=== PATIENT | female | born 1960 | race Caucasian/White ===

== ENCOUNTER 2019-11-18 12:18 | Inpatient (IN) | payer MEDICAID ==
[~2019-11-18] VITALS: Ht 165.1 cm; Wt 75.4 kg
[2019-11-18] VITALS (14 sets, daily range): BP systolic 68–90; BP diastolic 32–58
[~2019-11-18 12:18] MED LIST: CEFD300C37 PO; FERR324T18 PO; OMEP-110 PO; PRED20TA PO
[2019-11-18] MEDS ORDERED: SODIUM CHLORIDE FLUSH 10ML SYR IVF ONE (12:30)
[2019-11-18] MEDS ORDERED: SODIUM CHLORIDE 0.9% 1,000ML IVBOLUS ONE ×2 (12:30→15:00)
[2019-11-18] MEDS ORDERED: PLEASE ENTER WEIGHT MC SCH (13:00)
[2019-11-18 13:02] LABS: ALANINE AMINOTRANSFERASE 32 U/L (12-78); ALBUMIN 1.4 g/dL (3.4-5.0); CHLORIDE 93 mmol/L (98-107); CREATININE 1.34 mg/dL (0.55-1.02)
[2019-11-18 13:07] LABS: ALKALINE PHOSPHATASE 385 U/L (45-117); ANION GAP 10 mmol/L (5-15); BILIRUBIN,TOTAL 11.9 mg/dL (0.2-1.0); TOTAL PROTEIN 4.7 g/dL (6.4-8.2)
[2019-11-18 13:11] LABS: MEAN CORPUSCULAR HEMOGLOBIN 33.3 pg (27.0-34.8); MEAN CORPUSCULAR HGB CONC 33.3 g/dL (32.4-35.8); MEAN CORPUSCULAR VOLUME 100.1 fL (80-100); MEAN PLATELET VOLUME 6.9 fL (7.4-10.4); PLATELET COUNT 301 x10^3/uL (130-400); RED BLOOD COUNT 1.55 x10^6/uL (3.82-5.3)
--- NOTE | 2019-11-18 13:15 | NUR ---
IV ATTEMPTED, UNSUCCESSFUL, WILL TRY EJ OR US.
[2019-11-18 13:26] LABS: MD YES
--- NOTE | 2019-11-18 13:31 | NUR ---
PT LAYING IN BED, EJ IV ATEMPTED TO BE STARTED UNSUCCESSFUL, PT TOLERATED WELL
[2019-11-18 13:41] LABS: BAND#(MANUAL) 0.11 x10^3/uL; BANDS%(MANUAL) 1 % (0-7); LYMPH#(MANUAL) 0.84 x10^3/uL (1-3.4); LYMPHS% (MANUAL) 8 % (22-44); MONOS#(MANUAL) 0.53 x10^3/uL (0.3-2.7); MONOS% (MANUAL) 5 % (2-9); SEG#(MANUAL) 9.03 x10^3/uL (1.8-6.8); SEGS% (MANUAL) 86 % (42-75)
--- NOTE | 2019-11-18 13:41 | NUR ---
ERP TO BEDSIDE, DOING RECTAL EXAM.
[2019-11-18 13:42] LABS: ANISOCYTOSIS 1+; POLYCHROMASIA 1+
[2019-11-18 13:43] LABS: HYPOCHROMIA 1+
[2019-11-18 13:44] LABS: <PLATELET ESTIMATE> ADEQUATE; STOMATOCYTES 1+
[2019-11-18 13:45] LABS: <PLT MORPHOLOGY> NORMAL PLT MORPH
--- NOTE | 2019-11-18 14:08 | NUR ---
US IV START SUCCESSFUL, PT MEDICATED TO OCT. LAB AT BEDSIDE.
[2019-11-18 14:17] LABS: INTERNATIONAL NORMALIZED RATIO 1.24 (0.93-1.1); PROTHROMBIN TIME 13.2 Seconds (9.6-11.5)
[2019-11-18] MEDS ORDERED: SODIUM CHLORIDE 0.9% 1,000 ML IV ONE (14:30)
[2019-11-18] MEDS ORDERED: CEFTRIAXONE PMX 1GM/50ML 50 ML IV ONE (14:30)
[2019-11-18] MEDS ORDERED: PANTOPRAZOLE 80 MG in SODIUM CHLORIDE 0.9% 100 ML IV SCH (14:30)
--- NOTE | 2019-11-18 14:31 | NUR ---
BREAK RN: ORDERED MEDICATION FROM PHARMACY
--- NOTE | 2019-11-18 14:41 | NUR ---
BREAK RN: PT UP TO BSC, UNSTEADY GAIT. BP 81/34, NOTIFIED
--- NOTE | 2019-11-18 14:50 | NUR ---
BREAK RN: IV INFILTRATED. PT HAS POSITIVE BLOOD IN STOOL, NOTIFIED MD OF ABOVE
[2019-11-18] MEDS ORDERED: OCTREOTIDE 100MCG/ML, 1ML (0.1MG/ML) ONE (14:59)
--- NOTE | 2019-11-18 15:16 | NUR ---
ERP AT BEDSIDE, UPDATED PT ON POC, INCLUDING TO START CENTRAL LINE, BECAUSE MULTIPLE UNSUCCESSFUL IV STARTS. PT LAYING IN BED, AWAKE, AND CALM
[2019-11-18] MEDS: SODIUM CHLORIDE 0.9% 1,000 ML IV SCH (15:22)
--- NOTE | 2019-11-18 15:29 | NUR ---
ERP TO BEDSIDE TO INSERT CENTRAL LINE, CONSENT RECEIVED
[2019-11-18] MEDS ORDERED: BISACODYL 10 MG SUPP PR PRN (15:30)
[2019-11-18] MEDS ORDERED: ONDANSETRON 2MG/ML, 2ML IVPush PRN (15:30)
[2019-11-18] MEDS ORDERED: POLYETHYLENE GLYCOL 17 GM PACKET PO PRN (15:30)
[2019-11-18] MEDS ORDERED: OXYcodone IR 5MG TABLET PO PRN (15:30)
[2019-11-18] MEDS: OCTREOTIDE 100MCG/ML, 1ML (0.1MG/ML) IV ONE ×2 (15:58→16:14)
[2019-11-18] MEDS: PANTOPRAZOLE 80 MG in SODIUM CHLORIDE 0.9% 50 ML IVPB ONE ×2 (16:00→16:22)
[2019-11-18] MEDS ORDERED: CEFTRIAXONE PMX 1GM/50ML 50 ML ONE (16:04)
[2019-11-18] MEDS: OCTREOTIDE 500 MCG in SODIUM CHLORIDE 0.9% 99 ML IV PRN ×3 (16:08→16:22)
[2019-11-18] MEDS: CEFTRIAXONE PMX 1GM/50ML 50 ML IV SCH (16:25)
[2019-11-18] MEDS: PANTOPRAZOLE 80 MG in SODIUM CHLORIDE 0.9% 100 ML IV SCH (16:38)
--- NOTE | 2019-11-18 17:09 | NUR ---
PT TOLERATED CENTRAL LINE INSERTION WELL, MEDICATED TO MAR. PT STATES SHE IS TIRED. BLOOD STARTED. NURSE AT BEDSIDE.
--- NOTE | 2019-11-18 17:31 | NUR ---
Lizet alonso in [facility] - 11/18/19 at 1733 by MURTAZA REPORT GIVEN TO ANURAG MORENO.
--- NOTE | 2019-11-18 17:34 | NUR ---
REPORT GIVEN TO ANURAG MORENO.
[2019-11-18] MEDS ORDERED: NOREPINEPHRINE 8 MG in SODIUM CHLORIDE 0.9% 242 ML IV PRN (20:00)
[2019-11-19] MEDS: SODIUM CHLORIDE 0.9% 1,000 ML IV SCH ×3 (00:13→13:03)
[2019-11-19] MEDS: PANTOPRAZOLE 80 MG in SODIUM CHLORIDE 0.9% 100 ML IV SCH ×2 (00:14→13:27)
[2019-11-19 04:30] VITALS: BP 89/52
[2019-11-19 04:48] LABS: MEAN CORPUSCULAR HGB CONC 34.1 g/dL (32.4-35.8); MEAN CORPUSCULAR VOLUME 93.8 fL (80-100); MEAN PLATELET VOLUME 6.7 fL (7.4-10.4); PLATELET COUNT 241 x10^3/uL (130-400); RED CELL DISTRIBUTION WIDTH 17.2 % (9.6-15.2)
[2019-11-19 04:53] LABS: INTERNATIONAL NORMALIZED RATIO 1.21 (0.93-1.1); PROTHROMBIN TIME 12.9 Seconds (9.6-11.5)
[2019-11-19 04:57] LABS: ALBUMIN 1.2 g/dL (3.4-5.0); ANION GAP 6 mmol/L (5-15); CALCIUM 7.3 mg/dL (8.5-10.1); CHLORIDE 99 mmol/L (98-107)
[2019-11-19 05:01] LABS: ALANINE AMINOTRANSFERASE 31 U/L (12-78); ALKALINE PHOSPHATASE 363 U/L (45-117); CREATININE 1.21 mg/dL (0.55-1.02); TOTAL PROTEIN 4.1 g/dL (6.4-8.2)
[2019-11-19 05:05] LABS: BILIRUBIN,TOTAL 15.9 mg/dL (0.2-1.0)
[2019-11-19] MEDS: OCTREOTIDE 500 MCG in SODIUM CHLORIDE 0.9% 99 ML IV SCH ×2 (05:43→07:17)
[2019-11-19 05:54] LABS: MD YES
[2019-11-19 05:56] LABS: ANISOCYTOSIS 1+; HYPOCHROMIA 1+; LYMPH#(MANUAL) 0.91 x10^3/uL (1-3.4); LYMPHS% (MANUAL) 9 % (22-44); MONOS#(MANUAL) 0.61 x10^3/uL (0.3-2.7); MONOS% (MANUAL) 6 % (2-9); POLYCHROMASIA 1+; SEG#(MANUAL) 8.59 x10^3/uL (1.8-6.8); SEGS% (MANUAL) 85 % (42-75); TARGET CELLS 1+
[2019-11-19 05:57] LABS: <PLATELET ESTIMATE> ADEQUATE; <PLT MORPHOLOGY> NORMAL PLT MORPH
[2019-11-19] MEDS ORDERED: DEXAMETHASONE 4 MG/ML, 1ML ONE ×2 (07:28)
[2019-11-19] MEDS ORDERED: ONDANSETRON 2MG/ML, 2ML ONE (07:28)
[2019-11-19] MEDS ORDERED: PROPOFOL 10 MG/ML, 20ML ONE (07:28)
[2019-11-19] MEDS ORDERED: SUCCINYLCHOLINE 20 MG/ML, 10ML ONE (07:29)
[2019-11-19] MEDS ORDERED: PHENYLEPHRINE 10 MG/ML ONE (07:43)
[2019-11-19] MEDS ORDERED: HALOPERIDOL 5 MG/ML IV PRN (08:00)
[2019-11-19] MEDS ORDERED: PROMETHAZINE 25 MG/ML, 1ML IV PRN (08:00)
[2019-11-19] MEDS ORDERED: EPINEPHRINE SYRINGE 0.1 MG/ML, 10ML ONE (09:10)
[2019-11-19] MEDS: NOREPINEPHRINE 8 MG in SODIUM CHLORIDE 0.9% 242 ML IV PRN (10:03)
[2019-11-19] MEDS: SENNA/DOCUSATE TABLET PO SCH (10:11)
[2019-11-19] MEDS: CEFTRIAXONE PMX 1GM/50ML 50 ML IV SCH (15:05)
[2019-11-20] MEDS: PANTOPRAZOLE 80 MG in SODIUM CHLORIDE 0.9% 100 ML IV SCH (01:21)
[2019-11-20 05:02] LABS: ALBUMIN 1.2 g/dL (3.4-5.0); ANION GAP 7 mmol/L (5-15); CHLORIDE 99 mmol/L (98-107)
[2019-11-20 05:07] LABS: ALANINE AMINOTRANSFERASE 30 U/L (12-78); ALKALINE PHOSPHATASE 333 U/L (45-117); BILIRUBIN,TOTAL 12.5 mg/dL (0.2-1.0); CREATININE 1.42 mg/dL (0.55-1.02)
[2019-11-20] MEDS: NOREPINEPHRINE 8 MG in SODIUM CHLORIDE 0.9% 242 ML IV PRN (06:08)
[2019-11-20] MEDS: SENNA/DOCUSATE TABLET PO SCH (08:32)
[2019-11-20] MEDS: PANTOPRAZOLE 40 MG IV IVPush SCH ×2 (08:32→21:00)
[2019-11-20] MEDS: MIDODRINE 5 MG TABLET PO SCH ×3 (08:32→21:00)
[2019-11-20] MEDS: CEFTRIAXONE PMX 1GM/50ML 50 ML IV SCH (16:26)
[2019-11-21] MEDS: SENNA/DOCUSATE TABLET PO SCH (09:05)
[2019-11-21] MEDS: PANTOPRAZOLE 40 MG IV IVPush SCH ×2 (09:05→20:23)
[2019-11-21] MEDS: MIDODRINE 5 MG TABLET PO SCH ×3 (09:05→20:23)
[2019-11-21] MEDS: NOREPINEPHRINE 8 MG in SODIUM CHLORIDE 0.9% 242 ML IV PRN (09:45)
[2019-11-21] MEDS: ALBUMIN HUMAN 25% 100 ML IV SCH ×2 (11:11→19:38)
[2019-11-21 13:09] LABS: ANION GAP 6 mmol/L (5-15); CALCIUM 7.6 mg/dL (8.5-10.1); CHLORIDE 102 mmol/L (98-107); MEAN CORPUSCULAR HEMOGLOBIN 31.8 pg (27.0-34.8); MEAN CORPUSCULAR HGB CONC 33.1 g/dL (32.4-35.8); MEAN CORPUSCULAR VOLUME 96.2 fL (80-100); MEAN PLATELET VOLUME 6.2 fL (7.4-10.4); PLATELET COUNT 338 x10^3/uL (130-400); RED BLOOD COUNT 2.56 x10^6/uL (3.82-5.3); RED CELL DISTRIBUTION WIDTH 18.1 % (9.6-15.2)
[2019-11-21 13:12] LABS: ALANINE AMINOTRANSFERASE 30 U/L (12-78); ALKALINE PHOSPHATASE 305 U/L (45-117); BILIRUBIN,TOTAL 11.7 mg/dL (0.2-1.0); CREATININE 1.13 mg/dL (0.55-1.02); TOTAL PROTEIN 4.7 g/dL (6.4-8.2)
[2019-11-21 13:23] LABS: MD YES
[2019-11-21 13:25] LABS: ANISOCYTOSIS 1+; BAND#(MANUAL) 0.25 x10^3/uL; BANDS%(MANUAL) 2 % (0-7); EOS#(MANUAL) 0.13 x10^3/uL (0.0-0.4); EOS% (MANUAL) 1 % (1-7); LYMPH#(MANUAL) 1.26 x10^3/uL (1-3.4); LYMPHS% (MANUAL) 10 % (22-44); MONOS% (MANUAL) 4 % (2-9); REACTIVE LYMPHS # (MANUAL) 0.13 x10^3/uL (0-0); REACTIVE LYMPHS % (MANUAL) 1 % (0-0); SEG#(MANUAL) 10.33 x10^3/uL (1.8-6.8); SEGS% (MANUAL) 82 % (42-75)
[2019-11-21 13:26] LABS: HYPOCHROMIA 1+; POLYCHROMASIA 1+; TARGET CELLS 1+
[2019-11-21 13:27] LABS: <PLATELET ESTIMATE> ADEQUATE; <PLT MORPHOLOGY> NORMAL PLT MORPH
[2019-11-21] MEDS: CEFTRIAXONE PMX 1GM/50ML 50 ML IV SCH (16:30)
[2019-11-22] VITALS (10 sets, daily range): BP systolic 82–95; BP diastolic 42–56
[2019-11-22] MEDS: ALBUMIN HUMAN 25% 100 ML IV SCH ×3 (04:25→19:41)
[2019-11-22 05:32] LABS: ANION GAP 7 mmol/L (5-15); CALCIUM 7.6 mg/dL (8.5-10.1); CHLORIDE 105 mmol/L (98-107); CREATININE 0.95 mg/dL (0.55-1.02)
[2019-11-22 06:27] LABS: MEAN CORPUSCULAR HEMOGLOBIN 31.6 pg (27.0-34.8); MEAN CORPUSCULAR HGB CONC 32.7 g/dL (32.4-35.8); MEAN CORPUSCULAR VOLUME 96.5 fL (80-100); MEAN PLATELET VOLUME 6.2 fL (7.4-10.4); PLATELET COUNT 221 x10^3/uL (130-400); RED BLOOD COUNT 2.05 x10^6/uL (3.82-5.3)
[2019-11-22 06:54] LABS: MD YES
[2019-11-22 06:59] LABS: <RBC MORPHOLOGY> NORMAL; BAND#(MANUAL) 0.07 x10^3/uL; BANDS%(MANUAL) 1 % (0-7); EOS#(MANUAL) 0.22 x10^3/uL (0.0-0.4); EOS% (MANUAL) 3 % (1-7); LYMPH#(MANUAL) 0.95 x10^3/uL (1-3.4); LYMPHS% (MANUAL) 13 % (22-44); MONOS#(MANUAL) 0.29 x10^3/uL (0.3-2.7); MONOS% (MANUAL) 4 % (2-9); POLYCHROMASIA 1+; SEG#(MANUAL) 5.77 x10^3/uL (1.8-6.8); SEGS% (MANUAL) 79 % (42-75)
[2019-11-22 07:00] LABS: ANISOCYTOSIS 1+; HYPOCHROMIA 1+
[2019-11-22 07:02] LABS: TARGET CELLS 1+
[2019-11-22 07:03] LABS: <PLATELET ESTIMATE> ADEQUATE; <PLT MORPHOLOGY> NORMAL PLT MORPH
[2019-11-22] MEDS: MIDODRINE 5 MG TABLET PO SCH ×3 (08:49→20:22)
[2019-11-22] MEDS: PANTOPRAZOLE 40 MG IV IVPush SCH ×2 (08:49→20:22)
[2019-11-22] MEDS: SENNA/DOCUSATE TABLET PO SCH (08:49)
[2019-11-22] MEDS: CIPROFLOXACIN OPHTH SOLN 0.3%, 5ML EACHEYE SCH ×3 (10:39→20:22)
[2019-11-22] MEDS: CEFTRIAXONE PMX 1GM/50ML 50 ML IV SCH (15:47)
[2019-11-23] MEDS: ALBUMIN HUMAN 25% 100 ML IV SCH ×3 (03:14→20:00)
[2019-11-23 06:06] LABS: BASOPHILS % (AUTO) 0 % (0-1); EOSINOPHILS # (AUTO) 0.08 x10^3/uL (0-0.4); EOSINOPHILS % (AUTO) 1 % (1-7); LYMPHOCYTES # (AUTO) 1.97 x10^3/uL (1-3.4); LYMPHOCYTES % (AUTO) 22 % (22-44); MD NO; MEAN CORPUSCULAR VOLUME 93.9 fL (80-100); MEAN PLATELET VOLUME 6.3 fL (7.4-10.4); MONOCYTES # (AUTO) 0.18 x10^3/uL (0.2-0.8); MONOCYTES % (AUTO) 2 % (2-9); NEUTROPHILS # (AUTO) 6.95 x10^3/uL (1.8-6.8); NEUTROPHILS % (AUTO) 76 % (42-75); PLATELET COUNT 181 x10^3/uL (130-400); RED BLOOD COUNT 2.76 x10^6/uL (3.82-5.3); RED CELL DISTRIBUTION WIDTH 18.7 % (9.6-15.2)
[2019-11-23] MEDS: MIDODRINE 5 MG TABLET PO SCH ×3 (09:39→20:01)
[2019-11-23] MEDS: PANTOPRAZOLE 40 MG IV IVPush SCH ×2 (09:39→19:56)
[2019-11-23] MEDS: HYDROCORTISONE 100 MG INJ. IVPush SCH ×3 (09:39→19:56)
[2019-11-23] MEDS: CIPROFLOXACIN OPHTH SOLN 0.3%, 5ML EACHEYE SCH ×3 (09:39→20:00)
[2019-11-23] MEDS: SENNA/DOCUSATE TABLET PO SCH (09:40)
[2019-11-23] MEDS: CEFTRIAXONE PMX 1GM/50ML 50 ML IV SCH (15:17)
[2019-11-23 17:14] VITALS: BP 92/51
[2019-11-23 19:43] VITALS: BP 105/65
[2019-11-24 00:59] VITALS: BP 107/63
[2019-11-24] MEDS: HYDROCORTISONE 100 MG INJ. IVPush SCH ×4 (01:08→19:59)
[2019-11-24] MEDS: ALBUMIN HUMAN 25% 100 ML IV SCH ×3 (03:50→19:59)
[2019-11-24 05:58] LABS: BASOPHILS % (AUTO) 0 % (0-1); EOSINOPHILS % (AUTO) 0 % (1-7); LYMPHOCYTES # (AUTO) 0.56 x10^3/uL (1-3.4); LYMPHOCYTES % (AUTO) 7 % (22-44); MD NO; MEAN CORPUSCULAR HEMOGLOBIN 31.5 pg (27.0-34.8); MEAN CORPUSCULAR HGB CONC 33.2 g/dL (32.4-35.8); MEAN CORPUSCULAR VOLUME 94.8 fL (80-100); MEAN PLATELET VOLUME 6.8 fL (7.4-10.4); MONOCYTES # (AUTO) 0.05 x10^3/uL (0.2-0.8); MONOCYTES % (AUTO) 1 % (2-9); NEUTROPHILS # (AUTO) 7.12 x10^3/uL (1.8-6.8); NEUTROPHILS % (AUTO) 92 % (42-75); PLATELET COUNT 177 x10^3/uL (130-400); RED BLOOD COUNT 2.92 x10^6/uL (3.82-5.3); RED CELL DISTRIBUTION WIDTH 19.5 % (9.6-15.2)
[2019-11-24 06:12] LABS: ALBUMIN 3.5 g/dL (3.4-5.0); ANION GAP 8 mmol/L (5-15); CALCIUM 8.3 mg/dL (8.5-10.1); CHLORIDE 106 mmol/L (98-107)
[2019-11-24 06:16] LABS: ALANINE AMINOTRANSFERASE 22 U/L (12-78); ALKALINE PHOSPHATASE 259 U/L (45-117); CREATININE 0.98 mg/dL (0.55-1.02); TOTAL PROTEIN 5.4 g/dL (6.4-8.2)
[2019-11-24 06:18] LABS: BILIRUBIN,TOTAL 15.1 mg/dL (0.2-1.0)
[2019-11-24 08:01] VITALS: BP 94/57
[2019-11-24] MEDS: PANTOPRAZOLE 40 MG IV IVPush SCH (08:19)
[2019-11-24] MEDS: MIDODRINE 5 MG TABLET PO SCH ×4 (08:22→20:00)
[2019-11-24] MEDS: SENNA/DOCUSATE TABLET PO SCH (08:23)
[2019-11-24] MEDS: CIPROFLOXACIN OPHTH SOLN 0.3%, 5ML EACHEYE SCH ×3 (08:30→20:00)
[2019-11-24] MEDS ORDERED: SPIRONOLACTONE 25 MG TABLET PO SCH (09:00)
[2019-11-24 09:47] VITALS: BP 116/74
[2019-11-24] MEDS: FUROSEMIDE 20 MG TABLET PO SCH (09:48)
[2019-11-24] MEDS ORDERED: LIDOCAINE 1%, 10ML ONE (10:35)
[2019-11-24 12:04] LABS: CELLS COUNTED 30
[2019-11-24 12:20] VITALS: BP 97/62
[2019-11-24 16:43] VITALS: BP 99/62
[2019-11-24] MEDS: CEFTRIAXONE PMX 1GM/50ML 50 ML IV SCH (16:44)
[2019-11-24] MEDS: PANTOPRAZOLE 40MG TABLET PO SCH (20:00)
[2019-11-24 20:24] VITALS: BP 93/56
[2019-11-25] MEDS: HYDROCORTISONE 100 MG INJ. IVPush SCH ×3 (00:16→21:16)
[2019-11-25 00:45] VITALS: BP 101/63
[2019-11-25] MEDS: ALBUMIN HUMAN 25% 100 ML IV SCH ×2 (03:41→09:03)
[2019-11-25 04:48] LABS: ALANINE AMINOTRANSFERASE 19 U/L (12-78); ALBUMIN 3.2 g/dL (3.4-5.0); ANION GAP 6 mmol/L (5-15); CALCIUM 8.2 mg/dL (8.5-10.1); CHLORIDE 107 mmol/L (98-107); CREATININE 1.04 mg/dL (0.55-1.02)
[2019-11-25 04:50] LABS: ALKALINE PHOSPHATASE 274 U/L (45-117); BILIRUBIN,TOTAL 11.8 mg/dL (0.2-1.0); TOTAL PROTEIN 4.8 g/dL (6.4-8.2)
[2019-11-25] MEDS: PANTOPRAZOLE 40MG TABLET PO SCH ×2 (05:28→15:37)
[2019-11-25 07:25] VITALS: BP 103/63
[2019-11-25] MEDS: MIDODRINE 5 MG TABLET PO SCH ×3 (09:02→21:16)
[2019-11-25] MEDS: SENNA/DOCUSATE TABLET PO SCH (09:02)
[2019-11-25] MEDS: CIPROFLOXACIN OPHTH SOLN 0.3%, 5ML EACHEYE SCH ×3 (09:03→21:16)
[2019-11-25] MEDS: FUROSEMIDE 20 MG TABLET PO SCH (10:53)
[2019-11-25] MEDS: SPIRONOLACTONE 25 MG TABLET PO SCH (10:54)
[2019-11-25 12:55] VITALS: BP 110/63
--- NOTE | 2019-11-25 13:30 | NUR ---
NURSING ACTIVITY SHEET 1. Bilateral LE strengthening exercises x 10 reps as tolerated per handout: ankle pumps, glut sets, quad sets, heel slides 2. Bed up in chair position 2-3x's a day for meals. Addendum: 11/25/19 at 1414 by [facility] PTA Amended: Links added.
[2019-11-25 19:26] VITALS: BP 90/57
[2019-11-26 01:27] VITALS: BP 101/67
[2019-11-26] MEDS: PANTOPRAZOLE 40MG TABLET PO SCH ×2 (06:06→16:04)
[2019-11-26 06:18] VITALS: BP 93/50
[2019-11-26 06:19] LABS: BASOPHILS # (AUTO) 0.05 x10^3/uL (0-0.1); BASOPHILS % (AUTO) 1 % (0-1); EOSINOPHILS % (AUTO) 0 % (1-7); LYMPHOCYTES # (AUTO) 1.01 x10^3/uL (1-3.4); LYMPHOCYTES % (AUTO) 9 % (22-44); MD NO; MEAN CORPUSCULAR HGB CONC 32.4 g/dL (32.4-35.8); MEAN CORPUSCULAR VOLUME 95.9 fL (80-100); MEAN PLATELET VOLUME 7.2 fL (7.4-10.4); MONOCYTES # (AUTO) 0.47 x10^3/uL (0.2-0.8); MONOCYTES % (AUTO) 4 % (2-9); NEUTROPHILS # (AUTO) 9.34 x10^3/uL (1.8-6.8); NEUTROPHILS % (AUTO) 86 % (42-75); PLATELET COUNT 214 x10^3/uL (130-400); RED BLOOD COUNT 2.99 x10^6/uL (3.82-5.3); RED CELL DISTRIBUTION WIDTH 20.7 % (9.6-15.2)
[2019-11-26 06:20] LABS: ANION GAP 6 mmol/L (5-15); CALCIUM 8.1 mg/dL (8.5-10.1); CHLORIDE 107 mmol/L (98-107); CREATININE 1.08 mg/dL (0.55-1.02)
[2019-11-26] MEDS: SPIRONOLACTONE 25 MG TABLET PO SCH (08:06)
[2019-11-26] MEDS: FUROSEMIDE 20 MG TABLET PO SCH (08:06)
[2019-11-26] MEDS: ALBUMIN HUMAN 25% 100 ML IV SCH (08:06)
[2019-11-26] MEDS: MIDODRINE 5 MG TABLET PO SCH ×3 (08:07→20:41)
[2019-11-26] MEDS: SENNA/DOCUSATE TABLET PO SCH (08:08)
[2019-11-26] MEDS: CIPROFLOXACIN OPHTH SOLN 0.3%, 5ML EACHEYE SCH ×3 (08:10→20:42)
[2019-11-26 11:15] VITALS: BP 96/60
[2019-11-26 20:01] VITALS: BP 102/64
[2019-11-27 01:32] VITALS: BP 101/63
[2019-11-27] MEDS: PANTOPRAZOLE 40MG TABLET PO SCH ×2 (05:46→17:30)
[2019-11-27 07:31] VITALS: BP 92/56
[2019-11-27] MEDS ORDERED: ALBUMIN HUMAN 25% 200 ML IV ONE (09:00)
[2019-11-27] MEDS: SENNA/DOCUSATE TABLET PO SCH (09:00)
[2019-11-27 09:40] VITALS: BP 103/68
[2019-11-27] MEDS: CIPROFLOXACIN OPHTH SOLN 0.3%, 5ML EACHEYE SCH (09:50)
[2019-11-27] MEDS: MIDODRINE 5 MG TABLET PO SCH ×2 (09:51→20:49)
[2019-11-27] MEDS: FUROSEMIDE 20 MG TABLET PO SCH (09:51)
[2019-11-27] MEDS: SPIRONOLACTONE 25 MG TABLET PO SCH (09:53)
[2019-11-27] MEDS ORDERED: LIDOCAINE 1%, 10ML ONE (11:03)
[2019-11-27] MEDS: ALBUMIN HUMAN 25% 100 ML IV SCH (13:00)
[2019-11-27 13:41] VITALS: BP 102/64
[2019-11-27 18:18] VITALS: BP 96/61
[2019-11-28 00:39] VITALS: BP 98/62
[2019-11-28 04:40] LABS: BASOPHILS # (AUTO) 0.03 x10^3/uL (0-0.1); BASOPHILS % (AUTO) 1 % (0-1); EOSINOPHILS # (AUTO) 0.12 x10^3/uL (0-0.4); EOSINOPHILS % (AUTO) 2 % (1-7); LYMPHOCYTES # (AUTO) 1.27 x10^3/uL (1-3.4); LYMPHOCYTES % (AUTO) 20 % (22-44); MD NO; MEAN CORPUSCULAR HEMOGLOBIN 31.3 pg (27.0-34.8); MEAN CORPUSCULAR VOLUME 94.8 fL (80-100); MEAN PLATELET VOLUME 7.3 fL (7.4-10.4); MONOCYTES # (AUTO) 0.26 x10^3/uL (0.2-0.8); MONOCYTES % (AUTO) 4 % (2-9); NEUTROPHILS # (AUTO) 4.81 x10^3/uL (1.8-6.8); NEUTROPHILS % (AUTO) 74 % (42-75); PLATELET COUNT 192 x10^3/uL (130-400); RED CELL DISTRIBUTION WIDTH 19.5 % (9.6-15.2)
[2019-11-28 04:47] LABS: ALANINE AMINOTRANSFERASE 37 U/L (12-78); ALBUMIN 2.7 g/dL (3.4-5.0); ANION GAP 5 mmol/L (5-15); CHLORIDE 109 mmol/L (98-107); CREATININE 0.91 mg/dL (0.55-1.02)
[2019-11-28 04:50] LABS: ALKALINE PHOSPHATASE 347 U/L (45-117); BILIRUBIN,TOTAL 12.5 mg/dL (0.2-1.0); TOTAL PROTEIN 4.1 g/dL (6.4-8.2)
[2019-11-28] MEDS: PANTOPRAZOLE 40MG TABLET PO SCH ×2 (05:27→15:59)
[2019-11-28 07:53] VITALS: BP 91/57
[2019-11-28] MEDS: SENNA/DOCUSATE TABLET PO SCH (08:05)
[2019-11-28] MEDS: MIDODRINE 5 MG TABLET PO SCH ×2 (08:06→21:10)
[2019-11-28] MEDS: FUROSEMIDE 20 MG TABLET PO SCH (08:06)
[2019-11-28] MEDS: SPIRONOLACTONE 25 MG TABLET PO SCH (08:06)
[2019-11-28] MEDS: ALBUMIN HUMAN 25% 100 ML IV SCH (08:07)
[2019-11-28] MEDS ORDERED: TRIAMCINOLONE CRM 0.1%, 454GMS TP SCH (11:30)
[2019-11-28 12:15] VITALS: BP 100/65
[2019-11-28] MEDS: CARBAMIDE PEROXIDE EAR DROPS 6.5%, 15ML LEFT EAR SCH (12:26)
[2019-11-28 18:21] VITALS: BP 96/61
[2019-11-28] MEDS: TRIAMCINOLONE CRM 0.1%, 15GM TP SCH (21:10)
[2019-11-29 00:22] VITALS: BP 98/58
[2019-11-29] MEDS: PANTOPRAZOLE 40MG TABLET PO SCH ×2 (06:14→16:20)
[2019-11-29 07:53] VITALS: BP 97/58
[2019-11-29] MEDS: ALBUMIN HUMAN 25% 100 ML IV SCH (08:07)
[2019-11-29] MEDS: CARBAMIDE PEROXIDE EAR DROPS 6.5%, 15ML LEFT EAR SCH (08:08)
[2019-11-29] MEDS: TRIAMCINOLONE CRM 0.1%, 15GM TP SCH ×2 (08:08→20:25)
[2019-11-29] MEDS: MIDODRINE 5 MG TABLET PO SCH ×2 (08:09→20:25)
[2019-11-29] MEDS: FUROSEMIDE 20 MG TABLET PO SCH (08:09)
[2019-11-29] MEDS: SENNA/DOCUSATE TABLET PO SCH (08:10)
[2019-11-29] MEDS: SPIRONOLACTONE 25 MG TABLET PO SCH (08:10)
[2019-11-29 12:10] VITALS: BP 100/65
[2019-11-29 19:54] VITALS: BP 107/68
[2019-11-30 00:41] VITALS: BP 102/61
[2019-11-30] MEDS: PANTOPRAZOLE 40MG TABLET PO SCH ×2 (05:35→16:12)
[2019-11-30 06:58] VITALS: BP 99/58
[2019-11-30] MEDS: ALBUMIN HUMAN 25% 100 ML IV SCH (09:00)
[2019-11-30] MEDS: MIDODRINE 5 MG TABLET PO SCH ×2 (09:04→21:06)
[2019-11-30] MEDS: SENNA/DOCUSATE TABLET PO SCH (09:04)
[2019-11-30] MEDS: CARBAMIDE PEROXIDE EAR DROPS 6.5%, 15ML LEFT EAR SCH (10:35)
[2019-11-30] MEDS: FUROSEMIDE 20 MG TABLET PO SCH (10:57)
[2019-11-30] MEDS: SPIRONOLACTONE 25 MG TABLET PO SCH (10:57)
[2019-11-30] MEDS: TRIAMCINOLONE CRM 0.1%, 15GM TP SCH ×2 (10:58→21:06)
[2019-11-30 13:44] VITALS: BP 101/60
[2019-11-30 18:23] LABS: ANION GAP 10 mmol/L (5-15); CALCIUM 8.5 mg/dL (8.5-10.1); CHLORIDE 107 mmol/L (98-107); CREATININE 0.94 mg/dL (0.55-1.02)
[2019-11-30 19:51] VITALS: BP 94/57
[2019-11-30 20:33] VITALS: BP 149/74
[2019-11-30] MEDS ORDERED: LEVETIRACETAM 1,000 MG in SODIUM CHLORIDE 0.9% 100 ML IV ONE (21:00)
[2019-12-01 02:50] VITALS: BP 101/62
[2019-12-01] MEDS: PANTOPRAZOLE 40MG TABLET PO SCH ×2 (05:15→17:43)
[2019-12-01 07:05] VITALS: BP 89/55
[2019-12-01] MEDS ORDERED: POTASSIUM CHLORIDE 20 MEQ in SODIUM CHLORIDE 0.9% 250 ML IV ONE (08:00)
[2019-12-01] MEDS: FUROSEMIDE 20 MG TABLET PO SCH (09:00)
[2019-12-01] MEDS: SENNA/DOCUSATE TABLET PO SCH (09:00)
[2019-12-01] MEDS: SPIRONOLACTONE 25 MG TABLET PO SCH (09:00)
[2019-12-01] MEDS: MIDODRINE 5 MG TABLET PO SCH ×2 (09:58→20:26)
[2019-12-01] MEDS: CARBAMIDE PEROXIDE EAR DROPS 6.5%, 15ML LEFT EAR SCH (11:34)
[2019-12-01] MEDS: SODIUM CHLORIDE NASAL SPRAY 45ML BOTTLE NAS PRN (12:37)
[2019-12-01] MEDS: TRIAMCINOLONE CRM 0.1%, 15GM TP SCH ×2 (12:46→20:26)
[2019-12-01] MEDS: ALBUMIN HUMAN 25% 100 ML IV SCH (12:46)
[2019-12-01] MEDS ORDERED: LORazepam 2 MG/ML, 1ML IVPush PRN (14:00)
[2019-12-01 14:44] VITALS: BP 96/60
[2019-12-01] MEDS: LEVETIRACETAM 500 MG TABLET PO SCH ×2 (14:49→20:26)
[2019-12-01] MEDS ORDERED: GADOTERATE 7.5 MMOL/15 ML SYR ONE (16:14)
[2019-12-01 19:20] VITALS: BP 94/59
[2019-12-02 00:30] VITALS: BP 93/55
[2019-12-02] MEDS: PANTOPRAZOLE 40MG TABLET PO SCH ×2 (05:39→16:34)
[2019-12-02 07:00] LABS: BASOPHILS # (AUTO) 0.01 x10^3/uL (0-0.1); BASOPHILS % (AUTO) 0 % (0-1); EOSINOPHILS # (AUTO) 0.12 x10^3/uL (0-0.4); EOSINOPHILS % (AUTO) 2 % (1-7); LYMPHOCYTES % (AUTO) 19 % (22-44); MD NO; MEAN CORPUSCULAR HGB CONC 32.2 g/dL (32.4-35.8); MEAN CORPUSCULAR VOLUME 96.1 fL (80-100); MEAN PLATELET VOLUME 7.7 fL (7.4-10.4); MONOCYTES # (AUTO) 0.42 x10^3/uL (0.2-0.8); MONOCYTES % (AUTO) 7 % (2-9); NEUTROPHILS # (AUTO) 4.05 x10^3/uL (1.8-6.8); NEUTROPHILS % (AUTO) 71 % (42-75); PLATELET COUNT 169 x10^3/uL (130-400); RED BLOOD COUNT 2.67 x10^6/uL (3.82-5.3); RED CELL DISTRIBUTION WIDTH 20.3 % (9.6-15.2)
[2019-12-02 07:10] LABS: ALBUMIN 2.9 g/dL (3.4-5.0); ANION GAP 6 mmol/L (5-15); CALCIUM 8.1 mg/dL (8.5-10.1); CHLORIDE 109 mmol/L (98-107); CREATININE 0.63 mg/dL (0.55-1.02)
[2019-12-02 07:42] VITALS: BP 98/60
[2019-12-02] MEDS: ALBUMIN HUMAN 25% 100 ML IV SCH (08:02)
[2019-12-02] MEDS: SPIRONOLACTONE 25 MG TABLET PO SCH (08:03)
[2019-12-02] MEDS: TRIAMCINOLONE CRM 0.1%, 15GM TP SCH ×2 (08:03→20:43)
[2019-12-02] MEDS: MIDODRINE 5 MG TABLET PO SCH ×2 (08:03→20:43)
[2019-12-02] MEDS: CARBAMIDE PEROXIDE EAR DROPS 6.5%, 15ML LEFT EAR SCH (08:03)
[2019-12-02] MEDS: SENNA/DOCUSATE TABLET PO SCH (08:03)
[2019-12-02] MEDS: LEVETIRACETAM 500 MG TABLET PO SCH ×2 (08:03→20:42)
[2019-12-02] MEDS: FUROSEMIDE 20 MG TABLET PO SCH (08:04)
[2019-12-02 13:33] VITALS: BP 91/60
[2019-12-02] MEDS: SODIUM CHLORIDE NASAL SPRAY 45ML BOTTLE NAS PRN (17:18)
[2019-12-02 19:58] VITALS: BP 92/57
[2019-12-03 00:54] VITALS: BP 94/61
[2019-12-03] MEDS: PANTOPRAZOLE 40MG TABLET PO SCH (05:13)
[2019-12-03 07:22] VITALS: BP 95/60
[2019-12-03] MEDS: LEVETIRACETAM 500 MG TABLET PO SCH (08:18)
[2019-12-03] MEDS: FUROSEMIDE 20 MG TABLET PO SCH (08:18)
[2019-12-03] MEDS: ALBUMIN HUMAN 25% 100 ML IV SCH (08:18)
[2019-12-03] MEDS: MIDODRINE 5 MG TABLET PO SCH (08:19)
[2019-12-03] MEDS: SPIRONOLACTONE 25 MG TABLET PO SCH (08:19)
[2019-12-03] MEDS: TRIAMCINOLONE CRM 0.1%, 15GM TP SCH (08:25)
[2019-12-03] MEDS: SENNA/DOCUSATE TABLET PO SCH (08:25)
[2019-12-03] MEDS: CARBAMIDE PEROXIDE EAR DROPS 6.5%, 15ML LEFT EAR SCH (08:25)
[2019-12-03] MEDS ORDERED: LEVE500T53 PO (11:46)
[2019-12-03] MEDS ORDERED: FURO20TA3 PO (11:46)
[2019-12-03] MEDS ORDERED: SPIR25TA PO (11:46)
[2019-12-03] MEDS ORDERED: LIDOCAINE 1%, 10ML ONE (12:04)
[2019-12-03] MEDS ORDERED: PANT40TA5 PO (12:52)
[2019-12-03 13:37] VITALS: BP 95/60
== END 2019-12-03 15:48 | disposition home or self-care (01) | DRG 241 ==
LOC: ED 13:13 → EDIP 15:22 → CCU 18:36 → 4WST 11-23 17:03
PROVIDERS: ADMIT Internal Medicine; ATTEND Family Medicine
PROC: 02H633Z Insertion of Infusion Device into Right Atrium, Percutaneous Approach (ICD-10-PCS; principal; 2019-11-18)
PROC: B548ZZA Ultrasonography of Superior Vena Cava, Guidance (ICD-10-PCS; 2019-11-18)
PROC: 30233N1 Transfusion of Nonautologous Red Blood Cells into Peripheral Vein, Percutaneous Approach (ICD-10-PCS; 2019-11-18)
PROC: 0W3P8ZZ Control Bleeding in Gastrointestinal Tract, Via Natural or Artificial Opening Endoscopic (ICD-10-PCS; 2019-11-19)
PROC: 0W9G3ZZ Drainage of Peritoneal Cavity, Percutaneous Approach (ICD-10-PCS; 2019-11-24)
PROC: 0W9G3ZZ Drainage of Peritoneal Cavity, Percutaneous Approach (ICD-10-PCS; 2019-11-27)
PROC: 0W9G3ZZ Drainage of Peritoneal Cavity, Percutaneous Approach (ICD-10-PCS; 2019-12-03)
DX: K26.4 Chronic or unspecified duodenal ulcer with hemorrhage (principal); N17.0 Acute kidney failure with tubular necrosis; R57.1 Hypovolemic shock; E43 Unspecified severe protein-calorie malnutrition; J90 Pleural effusion, not elsewhere classified; D68.9 Coagulation defect, unspecified; L89.152 Pressure ulcer of sacral region, stage 2; E27.40 Unspecified adrenocortical insufficiency; D50.9 Iron deficiency anemia, unspecified; I95.89 Other hypotension; I85.10 Secondary esophageal varices without bleeding; E87.1 Hypo-osmolality and hyponatremia; D62 Acute posthemorrhagic anemia; E87.6 Hypokalemia; H10.029 Other mucopurulent conjunctivitis, unspecified eye; K70.11 Alcoholic hepatitis with ascites; K70.31 Alcoholic cirrhosis of liver with ascites; K75.4 Autoimmune hepatitis; K76.6 Portal hypertension; L30.9 Dermatitis, unspecified; R56.9 Unspecified convulsions; Z51.5 Encounter for palliative care; Z79.899 Other long term (current) drug therapy; Z82.49 Family history of ischemic heart disease and other diseases of the circulatory system; Z83.3 Family history of diabetes mellitus; Z98.51 Tubal ligation status
CPT/HCPCS: J3490 ×3; 36415; 36556; 49083; 70450; 70553; 71045; 80048; 80053; 80069; 82140; 82533; 82962; 83605; 83690; 83735; 83880; 84300; 85014; 85018; 85025; 85610; 86850; 86870; 86900; 86902; 86922; 86923; 87040; 87070; 87081; 87205; 87338; 89051; 93005; 95812; 96361; 96374; 96375; G0378; J0696; J1100; J1953; J2354; J2405; J2704; J3480; P9047; A9575; C9113; J0330; J1720; J2370; J7030; J7050; P9016

== ENCOUNTER 2019-12-10 22:06 | Emergency (ER) | payer MEDICAID ==
[~2019-12-10] VITALS: Ht 165.1 cm; Wt 48.0 kg
[~2019-12-10 22:06] MED LIST changes: +FURO20TA3 PO; +LEVE500T53 PO; +PANT40TA5 PO; +SPIR25TA PO
[2019-12-10 23:01] LABS: MEAN CORPUSCULAR HEMOGLOBIN 32.1 pg (27.0-34.8); MEAN CORPUSCULAR HGB CONC 33.3 g/dL (32.4-35.8); MEAN CORPUSCULAR VOLUME 96.5 fL (80-100); MEAN PLATELET VOLUME 7.9 fL (7.4-10.4); PLATELET COUNT 179 x10^3/uL (130-400); RED BLOOD COUNT 2.69 x10^6/uL (3.82-5.3); RED CELL DISTRIBUTION WIDTH 22.7 % (9.6-15.2)
[2019-12-10 23:02] LABS: ALANINE AMINOTRANSFERASE 32 U/L (12-78); ANION GAP 10 mmol/L (5-15); CALCIUM 8.9 mg/dL (8.5-10.1); CHLORIDE 100 mmol/L (98-107); CREATININE 0.67 mg/dL (0.55-1.02)
[2019-12-10 23:04] LABS: ALKALINE PHOSPHATASE 250 U/L (45-117); BILIRUBIN,TOTAL 13.4 mg/dL (0.2-1.0); INTERNATIONAL NORMALIZED RATIO 1.35 (0.93-1.1); PROTHROMBIN TIME 14.3 Seconds (9.6-11.5); TOTAL PROTEIN 5.4 g/dL (6.4-8.2)
[2019-12-10 23:28] LABS: BASOPHILS # (AUTO) 0.03 x10^3/uL (0-0.1); BASOPHILS % (AUTO) 1 % (0-1); EOSINOPHILS # (AUTO) 0.02 x10^3/uL (0-0.4); EOSINOPHILS % (AUTO) 0 % (1-7); LYMPHOCYTES # (AUTO) 0.77 x10^3/uL (1-3.4); LYMPHOCYTES % (AUTO) 17 % (22-44); MD SCAN; MONOCYTES # (AUTO) 0.42 x10^3/uL (0.2-0.8); MONOCYTES % (AUTO) 9 % (2-9); NEUTROPHILS # (AUTO) 3.32 x10^3/uL (1.8-6.8); NEUTROPHILS % (AUTO) 73 % (42-75)
[2019-12-10] MEDS ORDERED: POTASSIUM CHLORIDE 20 MEQ TAB.ER.PRT PO ONE (23:30)
[2019-12-10] MEDS ORDERED: POTASSIUM CHLORIDE 20 MEQ TAB.ER.PRT ONE (23:31)
[2019-12-10 23:56] VITALS: BP 100/58
--- NOTE | 2019-12-10 23:59 | NUR ---
Oral potassium given. Drinking water without difficulty. VSS. No concerns.
== END 2019-12-11 00:29 | disposition home or self-care (01) ==
LOC: ED 23:51
DX: L89.152 Pressure ulcer of sacral region, stage 2 (principal); R11.2 Nausea with vomiting, unspecified; E87.6 Hypokalemia; K75.4 Autoimmune hepatitis; E87.1 Hypo-osmolality and hyponatremia
CPT/HCPCS: 36415; 80053; 82140; 83690; 85025; 85610; 99283

== ENCOUNTER 2019-12-15 14:58 | Inpatient (IN) | payer MEDICAID ==
[~2019-12-15] VITALS: Ht 165.1 cm; Wt 66.1 kg
--- NOTE | 2019-12-15 15:04 | NUR ---
PT BIB EMS FOR A GLF, WEAKNESS AND FAILRUE TO THRIVE. PT IS COMPLAINING OF ANXIETY AND PTSD. PT HAS HX OF HEPATITIS. PT CONNECTED TO MONITORING EQUIPMENT. BLANKET PROVIDED.
[2019-12-15] MEDS ORDERED: SODIUM CHLORIDE 0.9%, 500ML IVBOLUS ONE (15:30)
[2019-12-15] MEDS ORDERED: SODIUM CHLORIDE FLUSH 10ML SYR IVF ONE (15:30)
[2019-12-15 15:44] LABS: MICROSCOPIC INDICATED
[2019-12-15 15:48] LABS: INTERNATIONAL NORMALIZED RATIO 1.38 (0.93-1.1); PROTHROMBIN TIME 14.7 Seconds (9.6-11.5)
[2019-12-15 15:49] LABS: ALANINE AMINOTRANSFERASE 34 U/L (12-78); ANION GAP 12 mmol/L (5-15); CALCIUM 8.3 mg/dL (8.5-10.1); CHLORIDE 101 mmol/L (98-107); CREATININE 0.68 mg/dL (0.55-1.02)
[2019-12-15 15:51] LABS: ALKALINE PHOSPHATASE 214 U/L (45-117); BILIRUBIN,TOTAL 11.6 mg/dL (0.2-1.0); TOTAL PROTEIN 5.2 g/dL (6.4-8.2)
[2019-12-15] MEDS ORDERED: DEXTROSE 10%, 250ML IV ONE (16:00)
--- NOTE | 2019-12-15 16:04 | NUR ---
PT RESTING IN [facility]. IV FLUIDS INFUSING.
[2019-12-15 16:17] LABS: MEAN CORPUSCULAR HEMOGLOBIN 32.3 pg (27.0-34.8); MEAN CORPUSCULAR HGB CONC 33.2 g/dL (32.4-35.8); MEAN CORPUSCULAR VOLUME 97.4 fL (80-100); MEAN PLATELET VOLUME 7.1 fL (7.4-10.4); PLATELET COUNT 241 x10^3/uL (130-400); RED BLOOD COUNT 2.28 x10^6/uL (3.82-5.3)
[2019-12-15 16:41] LABS: BASOPHILS % (AUTO) 0 % (0-1); EOSINOPHILS # (AUTO) 0.02 x10^3/uL (0-0.4); EOSINOPHILS % (AUTO) 0 % (1-7); LYMPHOCYTES # (AUTO) 0.74 x10^3/uL (1-3.4); LYMPHOCYTES % (AUTO) 17 % (22-44); MD SCAN; MONOCYTES # (AUTO) 0.43 x10^3/uL (0.2-0.8); MONOCYTES % (AUTO) 10 % (2-9); NEUTROPHILS # (AUTO) 3.15 x10^3/uL (1.8-6.8); NEUTROPHILS % (AUTO) 73 % (42-75)
--- NOTE | 2019-12-15 16:43 | NUR ---
BREAK RN: PATIENT RESTING ON GURNEY, RESPIRATIONS EVEN AND UNLABORED. GERONIMO WINN. CALL LIGHT IN REACH
[2019-12-15] MEDS ORDERED: CEFTRIAXONE PMX 1GM/50ML 50 ML ONE (16:44)
--- NOTE | 2019-12-15 16:55 | NUR ---
BREAK RN: PATIENT IS HYPOTENSIVE, 86/42. ERP NOTIFIED
[2019-12-15] MEDS ORDERED: CEFTRIAXONE PMX 1GM/50ML 50 ML IV ONE (17:00)
[2019-12-15] MEDS ORDERED: PANTOPRAZOLE 80 MG in SODIUM CHLORIDE 0.9% 50 ML IVPB ONE (17:20)
[2019-12-15] MEDS ORDERED: OCTREOTIDE 500 MCG in SODIUM CHLORIDE 0.9% 99 ML IV PRN (17:30)
[2019-12-15] MEDS ORDERED: OCTREOTIDE 100MCG/ML, 1ML (0.1MG/ML) IV ONE (17:30)
[2019-12-15] MEDS ORDERED: PANTOPRAZOLE 80 MG in SODIUM CHLORIDE 0.9% 100 ML IV SCH (17:45)
--- NOTE | 2019-12-15 18:04 | NUR ---
PT RESTING IN [facility]. ADMITTING HOPSITALIST IN ROOM FOR ASSESSMENT
[2019-12-15] MEDS ORDERED: ONDANSETRON 2MG/ML, 2ML IVPush PRN (18:30)
[2019-12-15] MEDS ORDERED: D5%-0.45% NACL 1,000 ML IV SCH (18:30)
[2019-12-15] MEDS ORDERED: OCTREOTIDE 500 MCG in SODIUM CHLORIDE 0.9% 99 ML IV SCH (18:30)
[2019-12-15 20:20] VITALS: BP 90/38
[2019-12-15 20:40] VITALS: BP 91/44
[2019-12-15 22:54] VITALS: BP 98/47
[2019-12-15] MEDS: LEVETIRACETAM 500 MG in SODIUM CHLORIDE 0.9% 100 ML IV SCH (22:59)
[2019-12-16 01:22] VITALS: BP 95/42
[2019-12-16] MEDS: PANTOPRAZOLE 80 MG in SODIUM CHLORIDE 0.9% 100 ML IV SCH ×2 (02:35→15:39)
[2019-12-16 06:23] VITALS: BP 88/43
[2019-12-16 06:53] LABS: MEAN CORPUSCULAR HEMOGLOBIN 32.8 pg (27.0-34.8); MEAN CORPUSCULAR HGB CONC 34.2 g/dL (32.4-35.8); MEAN CORPUSCULAR VOLUME 95.9 fL (80-100); MEAN PLATELET VOLUME 6.8 fL (7.4-10.4); PLATELET COUNT 187 x10^3/uL (130-400); RED BLOOD COUNT 2.71 x10^6/uL (3.82-5.3); RED CELL DISTRIBUTION WIDTH 23.1 % (9.6-15.2)
[2019-12-16 07:04] LABS: ALANINE AMINOTRANSFERASE 31 U/L (12-78); ALBUMIN 2.3 g/dL (3.4-5.0); ANION GAP 7 mmol/L (5-15); CALCIUM 7.5 mg/dL (8.5-10.1); CHLORIDE 106 mmol/L (98-107); CREATININE 0.64 mg/dL (0.55-1.02)
[2019-12-16 07:06] LABS: ALKALINE PHOSPHATASE 182 U/L (45-117); BILIRUBIN,TOTAL 12.6 mg/dL (0.2-1.0); TOTAL PROTEIN 4.3 g/dL (6.4-8.2)
[2019-12-16 07:28] LABS: <PLATELET ESTIMATE> ADEQUATE; <PLT MORPHOLOGY> NORMAL PLT MORPH; ANISOCYTOSIS 2+; BASOPHILS # (AUTO) 0.02 x10^3/uL (0-0.1); BASOPHILS % (AUTO) 1 % (0-1); EOSINOPHILS # (AUTO) 0.05 x10^3/uL (0-0.4); EOSINOPHILS % (AUTO) 1 % (1-7); HYPOCHROMIA 1+; LYMPHOCYTES # (AUTO) 0.96 x10^3/uL (1-3.4); LYMPHOCYTES % (AUTO) 26 % (22-44); MD MORPH REVIEW ONLY; MONOCYTES # (AUTO) 0.29 x10^3/uL (0.2-0.8); MONOCYTES % (AUTO) 8 % (2-9); NEUTROPHILS # (AUTO) 2.33 x10^3/uL (1.8-6.8); NEUTROPHILS % (AUTO) 64 % (42-75)
[2019-12-16] MEDS: FERROUS SULFATE 325 MG TABLET PO SCH (08:52)
[2019-12-16] MEDS: SODIUM CHLORIDE 0.9% 1,000 ML IV SCH (08:52)
[2019-12-16] MEDS: LACTOBACILLUS CHEW TABLET PO SCH ×3 (08:52→21:17)
[2019-12-16] MEDS ORDERED: FUROSEMIDE 20 MG/2 ML IV SCH (09:00)
[2019-12-16] MEDS ORDERED: FENTANYL PF 100 MCG/2ML ONE (09:51)
[2019-12-16] MEDS ORDERED: CHLORHEXIDINE 15 ML UDC MM ONE (10:00)
[2019-12-16] MEDS ORDERED: FENTANYL PF 100 MCG/2ML IV PRN (10:00)
[2019-12-16] MEDS ORDERED: CHLORHEXIDINE 15 ML UDC ONE (10:16)
[2019-12-16] MEDS ORDERED: SUCCINYLCHOLINE 20 MG/ML, 10ML ONE (10:36)
[2019-12-16] MEDS ORDERED: CEFAZOLIN 1,000 MG ONE (10:36)
[2019-12-16] MEDS ORDERED: NEOSTIGMINE 1 MG/ML, 10ML ONE (10:36)
[2019-12-16] MEDS ORDERED: ONDANSETRON 2MG/ML, 2ML ONE (10:36)
[2019-12-16] MEDS ORDERED: ROCURONIUM 10MG/ML,5ML ONE (10:36)
[2019-12-16] MEDS ORDERED: DEXAMETHASONE 4 MG/ML, 1ML ONE (10:36)
[2019-12-16] MEDS ORDERED: PROPOFOL 10 MG/ML, 20ML ONE (10:36)
[2019-12-16] MEDS ORDERED: GLYCOPYRROLATE 0.2MG/1ML, 5ML ONE (10:36)
[2019-12-16] MEDS: LEVETIRACETAM 500 MG in SODIUM CHLORIDE 0.9% 100 ML IV SCH ×2 (11:32→22:55)
[2019-12-16 12:19] VITALS: BP 90/53
[2019-12-16] MEDS ORDERED: LIDOCAINE 1%, 10ML ONE (14:06)
[2019-12-16 20:00] VITALS: BP 90/48
[2019-12-17 01:11] VITALS: BP 94/52
[2019-12-17] MEDS: PANTOPRAZOLE 80 MG in SODIUM CHLORIDE 0.9% 100 ML IV SCH (02:15)
[2019-12-17] MEDS: SODIUM CHLORIDE 0.9% 1,000 ML IV SCH ×2 (02:18→18:08)
[2019-12-17 05:41] LABS: MEAN CORPUSCULAR HEMOGLOBIN 31.9 pg (27.0-34.8); MEAN CORPUSCULAR HGB CONC 32.7 g/dL (32.4-35.8); MEAN CORPUSCULAR VOLUME 97.4 fL (80-100); MEAN PLATELET VOLUME 7.2 fL (7.4-10.4); PLATELET COUNT 209 x10^3/uL (130-400); RED BLOOD COUNT 2.97 x10^6/uL (3.82-5.3)
[2019-12-17 05:47] LABS: ALANINE AMINOTRANSFERASE 31 U/L (12-78); ALBUMIN 2.2 g/dL (3.4-5.0); ANION GAP 6 mmol/L (5-15); CALCIUM 7.6 mg/dL (8.5-10.1); CHLORIDE 106 mmol/L (98-107); CREATININE 0.73 mg/dL (0.55-1.02)
[2019-12-17 05:52] LABS: % IRON SATURATION 20 % (20-55); ALKALINE PHOSPHATASE 179 U/L (45-117); BILIRUBIN,TOTAL 10.1 mg/dL (0.2-1.0); IRON LEVEL 34 mcg/dL (50-170); TOTAL IRON BINDING CAPACITY 171 mcg/dL (250-450); TOTAL PROTEIN 4.2 g/dL (6.4-8.2)
[2019-12-17 06:18] VITALS: BP 89/53
[2019-12-17 07:29] LABS: BASOPHILS # (AUTO) 0.03 x10^3/uL (0-0.1); BASOPHILS % (AUTO) 1 % (0-1); EOSINOPHILS # (AUTO) 0.07 x10^3/uL (0-0.4); EOSINOPHILS % (AUTO) 2 % (1-7); LYMPHOCYTES # (AUTO) 0.97 x10^3/uL (1-3.4); LYMPHOCYTES % (AUTO) 27 % (22-44); MD SCAN; MONOCYTES # (AUTO) 0.34 x10^3/uL (0.2-0.8); MONOCYTES % (AUTO) 9 % (2-9); NEUTROPHILS # (AUTO) 2.19 x10^3/uL (1.8-6.8); NEUTROPHILS % (AUTO) 61 % (42-75)
[2019-12-17] MEDS: LACTOBACILLUS CHEW TABLET PO SCH ×3 (08:48→20:59)
[2019-12-17] MEDS: LEVETIRACETAM 500 MG TABLET PO SCH ×2 (08:48→20:59)
[2019-12-17 12:02] VITALS: BP 89/52
[2019-12-17 19:19] VITALS: BP 91/57
[2019-12-18 01:11] VITALS: BP 94/59
[2019-12-18] MEDS: PANTOPRAZOLE 40MG TABLET PO SCH (05:16)
[2019-12-18 06:38] VITALS: BP 93/61
[2019-12-18] MEDS: LACTOBACILLUS CHEW TABLET PO SCH ×3 (09:08→20:11)
[2019-12-18] MEDS: FERROUS SULFATE 325 MG TABLET PO SCH (09:08)
[2019-12-18] MEDS: LEVETIRACETAM 500 MG TABLET PO SCH ×2 (09:08→20:11)
[2019-12-18] MEDS: SODIUM CHLORIDE 0.9% 1,000 ML IV SCH (09:08)
[2019-12-18 13:09] VITALS: BP 94/56
[2019-12-18] MEDS ORDERED: METOCLOPRAMIDE 5 MG/ML, 2ML IVPush SCH (13:30)
[2019-12-18] MEDS ORDERED: BISACODYL 10 MG SUPP PR PRN (13:30)
[2019-12-18 18:39] VITALS: BP 93/60
[2019-12-18] MEDS: SENNA/DOCUSATE TABLET PO SCH (20:11)
[2019-12-18] MEDS: CALCIUM/VITAMIN D3 250-125 TABLET PO SCH (20:11)
[2019-12-19 01:04] VITALS: BP 92/55
[2019-12-19] MEDS: SODIUM CHLORIDE 0.9% 1,000 ML IV SCH ×2 (01:10→16:40)
[2019-12-19] MEDS: PANTOPRAZOLE 40MG TABLET PO SCH (05:11)
[2019-12-19 05:46] LABS: ANION GAP 7 mmol/L (5-15); CALCIUM 7.6 mg/dL (8.5-10.1); CHLORIDE 109 mmol/L (98-107); CREATININE 0.55 mg/dL (0.55-1.02)
[2019-12-19 07:34] VITALS: BP 94/59
[2019-12-19] MEDS ORDERED: POTASSIUM CHLORIDE 20 MEQ TAB.ER.PRT PO ONE (08:30)
[2019-12-19] MEDS: LACTOBACILLUS CHEW TABLET PO SCH ×3 (10:29→19:50)
[2019-12-19] MEDS: CALCIUM/VITAMIN D3 250-125 TABLET PO SCH ×2 (10:29→19:50)
[2019-12-19] MEDS: LEVETIRACETAM 500 MG TABLET PO SCH ×2 (10:29→19:50)
[2019-12-19] MEDS: BISACODYL 10 MG SUPP PR SCH (11:00)
[2019-12-19 12:48] VITALS: BP 94/58
[2019-12-19] MEDS ORDERED: BISACODYL 5 MG EC TABLET PO PRN (16:30)
[2019-12-19] MEDS: SENNA/DOCUSATE TABLET PO SCH (19:50)
[2019-12-19 20:16] VITALS: BP 96/61
[2019-12-20 02:37] VITALS: BP 94/61
[2019-12-20] MEDS: PANTOPRAZOLE 40MG TABLET PO SCH (05:29)
[2019-12-20 07:11] LABS: ANION GAP 8 mmol/L (5-15); CALCIUM 7.8 mg/dL (8.5-10.1); CHLORIDE 108 mmol/L (98-107)
[2019-12-20 07:53] VITALS: BP 91/52
[2019-12-20] MEDS: BISACODYL 10 MG SUPP PR SCH (09:00)
[2019-12-20] MEDS: FERROUS SULFATE 325 MG TABLET PO SCH (09:48)
[2019-12-20] MEDS: LEVETIRACETAM 500 MG TABLET PO SCH ×2 (09:48→21:07)
[2019-12-20] MEDS: CALCIUM/VITAMIN D3 250-125 TABLET PO SCH ×2 (09:48→21:07)
[2019-12-20] MEDS: LACTOBACILLUS CHEW TABLET PO SCH ×3 (09:48→21:07)
[2019-12-20] MEDS: POTASSIUM CHLORIDE 20 MEQ TAB.ER.PRT PO SCH ×2 (09:49→21:07)
[2019-12-20 13:31] VITALS: BP 105/75
[2019-12-20 19:53] VITALS: BP 102/65
[2019-12-20] MEDS: SENNA/DOCUSATE TABLET PO SCH (21:07)
[2019-12-20] MEDS: SODIUM CHLORIDE 0.9% 1,000 ML IV SCH (23:17)
[2019-12-21 00:01] VITALS: BP 95/62
[2019-12-21] MEDS: PANTOPRAZOLE 40MG TABLET PO SCH (04:50)
[2019-12-21 05:52] LABS: ANION GAP 5 mmol/L (5-15); CALCIUM 7.9 mg/dL (8.5-10.1); CHLORIDE 109 mmol/L (98-107); CREATININE 0.57 mg/dL (0.55-1.02)
[2019-12-21 07:14] VITALS: BP 93/55
[2019-12-21] MEDS ORDERED: ENOXAPARIN 40 MG/0.4 ML SQ SCH (08:00)
[2019-12-21] MEDS: BISACODYL 10 MG SUPP PR SCH (08:10)
[2019-12-21] MEDS: CALCIUM/VITAMIN D3 250-125 TABLET PO SCH ×2 (08:10→20:05)
[2019-12-21] MEDS: LEVETIRACETAM 500 MG TABLET PO SCH ×2 (08:10→20:05)
[2019-12-21] MEDS: LACTOBACILLUS CHEW TABLET PO SCH ×3 (08:10→20:05)
[2019-12-21 12:29] VITALS: BP 100/65
[2019-12-21] MEDS: SODIUM CHLORIDE 0.9% 1,000 ML IV SCH (17:07)
[2019-12-21] MEDS: SENNA/DOCUSATE TABLET PO SCH (20:07)
[2019-12-21 20:26] VITALS: BP 94/60
[2019-12-22 01:50] VITALS: BP 97/65
[2019-12-22 04:41] VITALS: BP 95/59
[2019-12-22] MEDS: PANTOPRAZOLE 40MG TABLET PO SCH (05:31)
[2019-12-22 06:19] LABS: MEAN CORPUSCULAR HEMOGLOBIN 32.7 pg (27.0-34.8); MEAN CORPUSCULAR HGB CONC 33.3 g/dL (32.4-35.8); MEAN CORPUSCULAR VOLUME 98.4 fL (80-100); MEAN PLATELET VOLUME 7.4 fL (7.4-10.4); PLATELET COUNT 238 x10^3/uL (130-400); RED BLOOD COUNT 2.66 x10^6/uL (3.82-5.3)
[2019-12-22 06:45] LABS: BASOPHILS # (AUTO) 0.02 x10^3/uL (0-0.1); BASOPHILS % (AUTO) 0 % (0-1); EOSINOPHILS # (AUTO) 0.08 x10^3/uL (0-0.4); EOSINOPHILS % (AUTO) 1 % (1-7); LYMPHOCYTES # (AUTO) 1.41 x10^3/uL (1-3.4); LYMPHOCYTES % (AUTO) 24 % (22-44); MD SCAN; MONOCYTES # (AUTO) 0.56 x10^3/uL (0.2-0.8); MONOCYTES % (AUTO) 10 % (2-9); NEUTROPHILS # (AUTO) 3.71 x10^3/uL (1.8-6.8); NEUTROPHILS % (AUTO) 64 % (42-75)
[2019-12-22 06:46] VITALS: BP 100/64
[2019-12-22] MEDS: BISACODYL 10 MG SUPP PR SCH (08:44)
[2019-12-22] MEDS: LACTOBACILLUS CHEW TABLET PO SCH ×3 (08:44→20:34)
[2019-12-22] MEDS: FERROUS SULFATE 325 MG TABLET PO SCH (08:44)
[2019-12-22] MEDS: CALCIUM/VITAMIN D3 250-125 TABLET PO SCH ×2 (08:44→20:34)
[2019-12-22] MEDS: LEVETIRACETAM 500 MG TABLET PO SCH ×2 (08:44→20:34)
[2019-12-22] MEDS ORDERED: SENNA/DOCUSATE TABLET PO PRN (09:30)
[2019-12-22] MEDS ORDERED: BISACODYL 10 MG SUPP PR PRN (09:30)
[2019-12-22] MEDS: SODIUM CHLORIDE 0.9% 1,000 ML IV SCH (09:49)
[2019-12-22] MEDS ORDERED: SODIUM CHLORIDE NASAL SPRAY 45ML BOTTLE NAS PRN (10:00)
[2019-12-22] MEDS ORDERED: ARTIFICIAL TEARS 15 DROP/ML BOTTLE EACHEYE PRN (10:00)
[2019-12-22 13:01] VITALS: BP 96/62
[2019-12-22 20:00] VITALS: BP 94/57
[2019-12-23 01:00] VITALS: BP 93/54
[2019-12-23] MEDS: SODIUM CHLORIDE 0.9% 1,000 ML IV SCH ×2 (01:23→16:19)
[2019-12-23] MEDS: PANTOPRAZOLE 40MG TABLET PO SCH (04:25)
[2019-12-23 05:55] LABS: MEAN CORPUSCULAR HGB CONC 32.9 g/dL (32.4-35.8); MEAN CORPUSCULAR VOLUME 100.1 fL (80-100); MEAN PLATELET VOLUME 7.3 fL (7.4-10.4); PLATELET COUNT 201 x10^3/uL (130-400); RED BLOOD COUNT 2.59 x10^6/uL (3.82-5.3); RED CELL DISTRIBUTION WIDTH 22.7 % (9.6-15.2)
[2019-12-23 06:24] VITALS: BP 96/65
[2019-12-23 06:35] LABS: MD YES
[2019-12-23 06:40] LABS: BAND#(MANUAL) 0.05 x10^3/uL; BANDS%(MANUAL) 1 % (0-7); EOS#(MANUAL) 0.14 x10^3/uL (0.0-0.4); EOS% (MANUAL) 3 % (1-7); LYMPH#(MANUAL) 0.78 x10^3/uL (1-3.4); LYMPHS% (MANUAL) 17 % (22-44); MONOS#(MANUAL) 0.18 x10^3/uL (0.3-2.7); MONOS% (MANUAL) 4 % (2-9); SEG#(MANUAL) 3.45 x10^3/uL (1.8-6.8); SEGS% (MANUAL) 75 % (42-75)
[2019-12-23 06:41] LABS: ANISOCYTOSIS 1+
[2019-12-23 06:42] LABS: <PLATELET ESTIMATE> ADEQUATE; <PLT MORPHOLOGY> NORMAL PLT MORPH; HYPOCHROMIA 1+
[2019-12-23] MEDS: LACTOBACILLUS CHEW TABLET PO SCH ×3 (09:19→21:57)
[2019-12-23] MEDS: LEVETIRACETAM 500 MG TABLET PO SCH ×2 (09:19→21:57)
[2019-12-23] MEDS: CALCIUM/VITAMIN D3 250-125 TABLET PO SCH ×2 (09:19→21:57)
[2019-12-23] MEDS ORDERED: LIDOCAINE 1%, 10ML ONE (11:22)
[2019-12-23 12:31] VITALS: BP 91/55
[2019-12-23] MEDS ORDERED: ALBUMIN HUMAN 25% 100 ML IV ONE (13:00)
--- NOTE | 2019-12-23 15:24 | NUR ---
Activity sheet placed on wall of patient's room. Reviewed with patient and informed RN. Addendum: 12/23/19 at 1524 by Sidney Bowers PT Amended: Links added.
[2019-12-23 20:20] VITALS: BP 97/61
[2019-12-24 02:00] VITALS: BP 92/53
[2019-12-24] MEDS: PANTOPRAZOLE 40MG TABLET PO SCH (05:55)
[2019-12-24 06:47] VITALS: BP 94/57
[2019-12-24] MEDS: LEVETIRACETAM 500 MG TABLET PO SCH ×2 (08:28→20:38)
[2019-12-24] MEDS: CALCIUM/VITAMIN D3 250-125 TABLET PO SCH ×2 (08:28→20:38)
[2019-12-24] MEDS: FERROUS SULFATE 325 MG TABLET PO SCH (08:28)
[2019-12-24] MEDS: LACTOBACILLUS CHEW TABLET PO SCH ×3 (08:29→20:38)
[2019-12-24] MEDS ORDERED: ACID1TAB7 PO (09:20)
[2019-12-24] MEDS ORDERED: CALC1TAB68 PO (09:20)
[2019-12-24] MEDS ORDERED: FERR-51 PO (09:20)
[2019-12-24 14:15] VITALS: BP 96/47
[2019-12-24 19:35] VITALS: BP 88/53
[2019-12-25 02:56] VITALS: BP 95/58
[2019-12-25 07:57] VITALS: BP 99/58
[2019-12-25] MEDS: LACTOBACILLUS CHEW TABLET PO SCH ×3 (08:14→20:02)
[2019-12-25] MEDS: CALCIUM/VITAMIN D3 250-125 TABLET PO SCH ×2 (08:14→20:02)
[2019-12-25] MEDS: PANTOPRAZOLE 40MG TABLET PO SCH (08:14)
[2019-12-25] MEDS: LEVETIRACETAM 500 MG TABLET PO SCH ×2 (08:14→20:02)
[2019-12-25 14:00] VITALS: BP 91/57
[2019-12-25 19:11] VITALS: BP 93/59
[2019-12-26 01:22] VITALS: BP 95/58
[2019-12-26] MEDS: PANTOPRAZOLE 40MG TABLET PO SCH (05:09)
[2019-12-26 06:25] LABS: ANION GAP 9 mmol/L (5-15); CHLORIDE 107 mmol/L (98-107); CREATININE 0.53 mg/dL (0.55-1.02)
[2019-12-26 06:30] LABS: MEAN CORPUSCULAR HEMOGLOBIN 33.6 pg (27.0-34.8); MEAN CORPUSCULAR HGB CONC 33.3 g/dL (32.4-35.8); MEAN PLATELET VOLUME 7.6 fL (7.4-10.4); PLATELET COUNT 196 x10^3/uL (130-400); RED BLOOD COUNT 2.39 x10^6/uL (3.82-5.3); RED CELL DISTRIBUTION WIDTH 21.5 % (9.6-15.2)
[2019-12-26 06:40] LABS: BASOPHILS # (AUTO) 0.01 x10^3/uL (0-0.1); BASOPHILS % (AUTO) 0 % (0-1); EOSINOPHILS # (AUTO) 0.05 x10^3/uL (0-0.4); EOSINOPHILS % (AUTO) 1 % (1-7); LYMPHOCYTES # (AUTO) 1.24 x10^3/uL (1-3.4); LYMPHOCYTES % (AUTO) 29 % (22-44); MD SCAN; MONOCYTES # (AUTO) 0.46 x10^3/uL (0.2-0.8); MONOCYTES % (AUTO) 11 % (2-9); NEUTROPHILS # (AUTO) 2.54 x10^3/uL (1.8-6.8); NEUTROPHILS % (AUTO) 59 % (42-75)
[2019-12-26] MEDS: LACTOBACILLUS CHEW TABLET PO SCH ×3 (07:58→20:09)
[2019-12-26] MEDS: CALCIUM/VITAMIN D3 250-125 TABLET PO SCH ×2 (07:58→20:09)
[2019-12-26] MEDS: LEVETIRACETAM 500 MG TABLET PO SCH ×2 (07:59→20:09)
[2019-12-26] MEDS: FERROUS SULFATE 325 MG TABLET PO SCH (08:00)
[2019-12-26 08:04] VITALS: BP 89/49
[2019-12-26] MEDS ORDERED: POTASSIUM CHLORIDE 40 MEQ in SODIUM CHLORIDE 0.9% 500 ML IV ONE (13:00)
[2019-12-26 13:02] VITALS: BP 98/65
[2019-12-26 19:03] VITALS: BP 92/57
[2019-12-27 01:32] VITALS: BP 95/59
[2019-12-27] MEDS: PANTOPRAZOLE 40MG TABLET PO SCH (05:36)
[2019-12-27 05:40] LABS: ANION GAP 8 mmol/L (5-15); CHLORIDE 105 mmol/L (98-107); CREATININE 0.57 mg/dL (0.55-1.02)
[2019-12-27 06:39] LABS: MEAN CORPUSCULAR HEMOGLOBIN 33.1 pg (27.0-34.8); MEAN CORPUSCULAR HGB CONC 33.3 g/dL (32.4-35.8); MEAN CORPUSCULAR VOLUME 99.2 fL (80-100); PLATELET COUNT 240 x10^3/uL (130-400); RED BLOOD COUNT 2.73 x10^6/uL (3.82-5.3); RED CELL DISTRIBUTION WIDTH 21.4 % (9.6-15.2)
[2019-12-27 07:06] LABS: MD YES
[2019-12-27 07:07] LABS: ANISOCYTOSIS 1+; EOS#(MANUAL) 0.11 x10^3/uL (0.0-0.4); EOS% (MANUAL) 2 % (1-7); HYPOCHROMIA 1+; LYMPH#(MANUAL) 0.86 x10^3/uL (1-3.4); LYMPHS% (MANUAL) 15 % (22-44); MONOS#(MANUAL) 0.34 x10^3/uL (0.3-2.7); MONOS% (MANUAL) 6 % (2-9); POLYCHROMASIA 1+; SEG#(MANUAL) 4.39 x10^3/uL (1.8-6.8); SEGS% (MANUAL) 77 % (42-75)
[2019-12-27 07:08] LABS: <PLATELET ESTIMATE> ADEQUATE; <PLT MORPHOLOGY> NORMAL PLT MORPH; TARGET CELLS 1+
[2019-12-27] MEDS: LACTOBACILLUS CHEW TABLET PO SCH ×3 (07:57→20:04)
[2019-12-27] MEDS: CALCIUM/VITAMIN D3 250-125 TABLET PO SCH ×2 (07:57→20:04)
[2019-12-27] MEDS: LEVETIRACETAM 500 MG TABLET PO SCH ×2 (07:58→20:04)
[2019-12-27 08:09] VITALS: BP 91/61
[2019-12-27 12:05] VITALS: BP 96/62
[2019-12-27 19:07] VITALS: BP 95/59
[2019-12-28 02:10] VITALS: BP 96/60
[2019-12-28] MEDS: PANTOPRAZOLE 40MG TABLET PO SCH (05:50)
[2019-12-28 06:46] VITALS: BP 93/57
[2019-12-28] MEDS: LACTOBACILLUS CHEW TABLET PO SCH ×3 (09:33→21:40)
[2019-12-28] MEDS: FERROUS SULFATE 325 MG TABLET PO SCH (09:33)
[2019-12-28] MEDS: LEVETIRACETAM 500 MG TABLET PO SCH ×2 (09:33→21:40)
[2019-12-28] MEDS: CALCIUM/VITAMIN D3 250-125 TABLET PO SCH ×2 (09:33→21:40)
[2019-12-28 13:09] VITALS: BP 97/63
[2019-12-28] MEDS ORDERED: POTASSIUM CHLORIDE 40 MEQ in SODIUM CHLORIDE 0.9% 500 ML IV ONE (14:30)
[2019-12-28 19:49] VITALS: BP 95/59
[2019-12-29 01:22] VITALS: BP 92/59
[2019-12-29] MEDS: PANTOPRAZOLE 40MG TABLET PO SCH (05:08)
[2019-12-29 07:32] VITALS: BP 96/61
[2019-12-29] MEDS: LACTOBACILLUS CHEW TABLET PO SCH ×4 (08:58→20:05)
[2019-12-29] MEDS: CALCIUM/VITAMIN D3 250-125 TABLET PO SCH ×2 (08:58→20:05)
[2019-12-29] MEDS: LEVETIRACETAM 500 MG TABLET PO SCH ×2 (08:58→20:05)
[2019-12-29 12:07] VITALS: BP 93/61
[2019-12-29 19:00] VITALS: BP 97/64
[2019-12-30 00:48] VITALS: BP 96/92
[2019-12-30] MEDS: PANTOPRAZOLE 40MG TABLET PO SCH (05:45)
[2019-12-30 05:58] LABS: MEAN CORPUSCULAR HEMOGLOBIN 33.8 pg (27.0-34.8); MEAN CORPUSCULAR HGB CONC 33.7 g/dL (32.4-35.8); MEAN CORPUSCULAR VOLUME 100.3 fL (80-100); MEAN PLATELET VOLUME 7.5 fL (7.4-10.4); PLATELET COUNT 193 x10^3/uL (130-400); RED BLOOD COUNT 2.43 x10^6/uL (3.82-5.3); RED CELL DISTRIBUTION WIDTH 20.7 % (9.6-15.2)
[2019-12-30 06:03] LABS: CHLORIDE 106 mmol/L (98-107)
[2019-12-30 06:07] LABS: ANION GAP 7 mmol/L (5-15); CALCIUM 7.9 mg/dL (8.5-10.1); CREATININE 0.53 mg/dL (0.55-1.02)
[2019-12-30 06:36] VITALS: BP 92/57
[2019-12-30 06:37] LABS: MD YES
[2019-12-30 06:38] LABS: BAND#(MANUAL) 0.05 x10^3/uL; BANDS%(MANUAL) 1 % (0-7); BASOS#(MANUAL) 0.05 x10^3/uL (0-0.1); BASOS% (MANUAL) 1 % (0-1); EOS#(MANUAL) 0.22 x10^3/uL (0.0-0.4); EOS% (MANUAL) 4 % (1-7); LYMPH#(MANUAL) 0.86 x10^3/uL (1-3.4); LYMPHS% (MANUAL) 16 % (22-44); MONOS#(MANUAL) 0.43 x10^3/uL (0.3-2.7); MONOS% (MANUAL) 8 % (2-9); SEG#(MANUAL) 3.78 x10^3/uL (1.8-6.8); SEGS% (MANUAL) 70 % (42-75)
[2019-12-30 06:39] LABS: ANISOCYTOSIS 1+; HYPOCHROMIA 1+; TARGET CELLS 1+
[2019-12-30 06:40] LABS: <PLATELET ESTIMATE> ADEQUATE; <PLT MORPHOLOGY> NORMAL PLT MORPH
[2019-12-30] MEDS: FERROUS SULFATE 325 MG TABLET PO SCH (07:54)
[2019-12-30] MEDS: CALCIUM/VITAMIN D3 250-125 TABLET PO SCH ×2 (07:54→21:12)
[2019-12-30] MEDS: LEVETIRACETAM 500 MG TABLET PO SCH ×2 (07:54→21:12)
[2019-12-30] MEDS: LACTOBACILLUS CHEW TABLET PO SCH ×3 (07:54→21:00)
[2019-12-30 12:06] VITALS: BP 90/51
[2019-12-30] MEDS ORDERED: LIDOCAINE 1%, 10ML ONE (15:08)
[2019-12-30 19:49] VITALS: BP 89/57
[2019-12-31] MEDS: PANTOPRAZOLE 40MG TABLET PO SCH (06:35)
[2019-12-31 07:14] VITALS: BP 87/54
[2019-12-31] MEDS: LEVETIRACETAM 500 MG TABLET PO SCH (08:17)
[2019-12-31] MEDS: LACTOBACILLUS CHEW TABLET PO SCH ×2 (08:17→15:44)
[2019-12-31] MEDS: CALCIUM/VITAMIN D3 250-125 TABLET PO SCH (08:17)
[2019-12-31 12:10] VITALS: BP 91/60
== END 2019-12-31 17:06 | disposition home or self-care (01) ==
LOC: ED 15:48 → EDIP 18:08 → 4EST 19:04
PROVIDERS: ADMIT Internal Medicine; ATTEND Family Medicine
PROC: 30233N1 Transfusion of Nonautologous Red Blood Cells into Peripheral Vein, Percutaneous Approach (ICD-10-PCS; 2019-12-16)
PROC: 0DJ08ZZ Inspection of Upper Intestinal Tract, Via Natural or Artificial Opening Endoscopic (ICD-10-PCS; principal; 2019-12-16 11:30)
PROC: 0W9G3ZZ Drainage of Peritoneal Cavity, Percutaneous Approach (ICD-10-PCS; 2019-12-30)
DX: K76.6 Portal hypertension (principal); I85.11 Secondary esophageal varices with bleeding; E43 Unspecified severe protein-calorie malnutrition; D68.9 Coagulation defect, unspecified; K26.4 Chronic or unspecified duodenal ulcer with hemorrhage; R18.8 Other ascites; K74.60 Unspecified cirrhosis of liver; E83.51 Hypocalcemia; D62 Acute posthemorrhagic anemia; E87.1 Hypo-osmolality and hyponatremia; K75.4 Autoimmune hepatitis; D50.9 Iron deficiency anemia, unspecified; E06.3 Autoimmune thyroiditis; E16.2 Hypoglycemia, unspecified; E87.6 Hypokalemia; F32.9 Major depressive disorder, single episode, unspecified; F41.1 Generalized anxiety disorder; F43.10 Post-traumatic stress disorder, unspecified; G40.909 Epilepsy, unspecified, not intractable, without status epilepticus; J45.909 Unspecified asthma, uncomplicated; N39.0 Urinary tract infection, site not specified; R29.6 Repeated falls; W18.30XA Fall on same level, unspecified, initial encounter; E80.6 Other disorders of bilirubin metabolism; K31.89 Other diseases of stomach and duodenum; Y92.009 Unspecified place in unspecified non-institutional (private) residence as the place of occurrence of the external cause; Z82.0 Family history of epilepsy and other diseases of the nervous system; Z82.49 Family history of ischemic heart disease and other diseases of the circulatory system; Z83.3 Family history of diabetes mellitus; Z91.19 Patient's noncompliance with other medical treatment and regimen; Z98.51 Tubal ligation status; Z79.899 Other long term (current) drug therapy; Z68.34 Body mass index [BMI] 34.0-34.9, adult
CPT/HCPCS: J3490 ×3; 36415; 49083; 70450; 76705; 80048; 80053; 80069; 81001; 82140; 82330; 83540; 83550; 83605; 83735; 84145; 85014; 85018; 85025; 85610; 85730; 86022; 86850; 86870; 86900; 86902; 86922; 86923; 87040; 87077; 87086; 87186; 87338; 96365; 96366; 96367; 96368; 96375; 99291; G0378; J0690; J0696; J1100; J1650; J1953; J2354; J2405; J2704; J2710; J3010; J3480; P9047; C9113; J0330; J7030; J7040; P9016

== ENCOUNTER 2020-01-07 20:46 | Emergency (ER) | payer MEDICAID ==
[~2020-01-07] VITALS: Ht 165.1 cm; Wt 74.0 kg
[~2020-01-07 20:46] MED LIST changes: +ACID1TAB7 PO; +CALC1TAB68 PO; +FERR-51 PO
--- NOTE | 2020-01-07 20:58 | NUR ---
Patient BIB [facility] c/o abd swelling for a couple days. Patient has a hx of ascites and same complaint; states she usually gets the fluid drained. Patient denies abd pain or SOB. Patient is in NAD. Respirations even and unlabored.
[2020-01-07] MEDS ORDERED: LIDOCAINE 1%, 10ML ONE (22:10)
[2020-01-07 23:21] VITALS: BP 92/57
--- NOTE | 2020-01-07 23:25 | NUR ---
Paracentesis complete; patient to be discharged. Patient states she feels relief in her abdomen.
--- NOTE | 2020-01-08 00:32 | NUR ---
Discharge instructions given. All questions and concerns addressed. Patient ambulatory with walker with a steady gait. Belongings with patient. Taxi voucher given.
== END 2020-01-08 00:33 | disposition home or self-care (01) ==
LOC: ED 21:29
DX: K74.60 Unspecified cirrhosis of liver (principal)
CPT/HCPCS: 49083; 99285; J3490

== ENCOUNTER 2020-01-13 14:10 | Inpatient (IN) | payer MEDICAID ==
[~2020-01-13] VITALS: Ht 165.1 cm; Wt 55.0 kg
--- NOTE | 2020-01-13 14:15 | NUR ---
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 SHE HAS BEEN TAPPED 5 TIMES TOTAL AND LAST ONE WAS A FEW DAYS AGO. HE IS HYPOTENSIVE BUT NOT SYMPTOMATIC AND STATES THIS IS NORMAL FOR HER.
[2020-01-13 14:48] LABS: ALANINE AMINOTRANSFERASE 38 U/L (12-78); ALBUMIN 1.9 g/dL (3.4-5.0); ANION GAP 6 mmol/L (5-15); CALCIUM 9.4 mg/dL (8.5-10.1); CHLORIDE 94 mmol/L (98-107); CREATININE 0.85 mg/dL (0.55-1.02)
[2020-01-13 14:51] LABS: ALKALINE PHOSPHATASE 368 U/L (45-117); BILIRUBIN,TOTAL 7.3 mg/dL (0.2-1.0); TOTAL PROTEIN 5.1 g/dL (6.4-8.2)
[2020-01-13] MEDS ORDERED: SODIUM CHLORIDE FLUSH 10ML SYR IVF ONE (15:00)
[2020-01-13] MEDS ORDERED: SODIUM CHLORIDE 0.9% 1,000ML IVBOLUS ONE (15:00)
[2020-01-13 15:04] LABS: MD YES; MEAN CORPUSCULAR HEMOGLOBIN 35.2 pg (27.0-34.8); MEAN CORPUSCULAR HGB CONC 34.5 g/dL (32.4-35.8); PLATELET COUNT 299 x10^3/uL (130-400); RED BLOOD COUNT 2.17 x10^6/uL (3.82-5.3); RED CELL DISTRIBUTION WIDTH 15.9 % (9.6-15.2)
[2020-01-13] MEDS ORDERED: PANTOPRAZOLE 80 MG in SODIUM CHLORIDE 0.9% 50 ML IVPB ONE (15:24)
[2020-01-13] MEDS ORDERED: OCTREOTIDE 100MCG/ML, 1ML (0.1MG/ML) IV ONE (15:30)
[2020-01-13] MEDS ORDERED: OCTREOTIDE 500 MCG in SODIUM CHLORIDE 0.9% 99 ML IV PRN (15:30)
[2020-01-13 15:37] LABS: INTERNATIONAL NORMALIZED RATIO 1.1 (0.93-1.1); PROTHROMBIN TIME 11.7 Seconds (9.6-11.5)
[2020-01-13 15:45] LABS: BAND#(MANUAL) 0.06 x10^3/uL; BANDS%(MANUAL) 1 % (0-7); EOS#(MANUAL) 0.06 x10^3/uL (0.0-0.4); EOS% (MANUAL) 1 % (1-7); LYMPH#(MANUAL) 1.36 x10^3/uL (1-3.4); LYMPHS% (MANUAL) 22 % (22-44); MONOS#(MANUAL) 0.37 x10^3/uL (0.3-2.7); MONOS% (MANUAL) 6 % (2-9); SEG#(MANUAL) 4.34 x10^3/uL (1.8-6.8); SEGS% (MANUAL) 70 % (42-75)
[2020-01-13 15:46] LABS: <PLATELET ESTIMATE> ADEQUATE; <PLT MORPHOLOGY> NORMAL PLT MORPH; ANISOCYTOSIS 1+; HYPOCHROMIA 1+; POLYCHROMASIA 1+
[2020-01-13] MEDS ORDERED: LIDOCAINE 1%, 10ML ONE (15:57)
[2020-01-13] MEDS ORDERED: ALBUMIN HUMAN 25% 50 ML IV ONE (16:00)
--- NOTE | 2020-01-13 16:17 | NUR ---
attempted to get a second iv x1 left arrm, blew. patient states she usually gets EJ's. radiology came to tap patient and she left while I was requesting protonix/albumin and octreotide gtts from pharmacy. got the albumin and administered to it in IRadiology to help her hypotension during tap. will hang other two drips and blood when available
[2020-01-13] MEDS ORDERED: PANTOPRAZOLE 40 MG IV ONE (16:39)
[2020-01-13] MEDS: PANTOPRAZOLE 80 MG in SODIUM CHLORIDE 0.9% 100 ML IV SCH (16:40)
--- NOTE | 2020-01-13 16:52 | NUR ---
blood bank called and patient has antibodies, blood will be delayed. tubing ready. patient is hypotensive but not symptomatic, she's aox4. alerted md law. patient had 3.5 bottles of fluid removed in paracentesis.
--- NOTE | 2020-01-13 17:13 | NUR ---
PATIENT AOX4, CALM AND IN BED RAILS UP ON MONITOR. AWAITING ROOM AND BLOOD FROM BLOOD BANK
[2020-01-13] MEDS ORDERED: CEFTRIAXONE PMX 1GM/50ML 50 ML ONE (17:18)
[2020-01-13] MEDS ORDERED: FERROUS SULFATE 325 MG TABLET PO SCH (17:30)
[2020-01-13] MEDS ORDERED: ACETAMINOPHEN 325 MG TABLET PO PRN (17:30)
[2020-01-13] MEDS ORDERED: OXYcodone IR 5MG TABLET PO PRN (17:30)
[2020-01-13] MEDS ORDERED: ONDANSETRON 2MG/ML, 2ML IVPush PRN (17:30)
[2020-01-13] MEDS ORDERED: CEFTRIAXONE PMX 2GM/50ML 50 ML IV SCH (17:30)
[2020-01-13 17:55] LABS: CELLS COUNTED 24
[2020-01-13 18:30] VITALS: BP 90/41
[2020-01-13] MEDS: LEVETIRACETAM 500 MG TABLET PO SCH (20:26)
[2020-01-13 22:15] VITALS: BP 89/45
[2020-01-13 22:32] VITALS: BP 87/40
[2020-01-13 23:01] VITALS: BP 90/56
[2020-01-14] VITALS (9 sets, daily range): BP systolic 81–93; BP diastolic 40–56
[2020-01-14] MEDS: PANTOPRAZOLE 80 MG in SODIUM CHLORIDE 0.9% 100 ML IV SCH (00:12)
[2020-01-14] MEDS ORDERED: OCTREOTIDE 500 MCG in SODIUM CHLORIDE 0.9% 99 ML IV PRN (00:30)
[2020-01-14] MEDS ORDERED: PANTOPRAZOLE 80 MG in SODIUM CHLORIDE 0.9% 100 ML IV SCH (00:30)
[2020-01-14 06:03] LABS: ANION GAP 10 mmol/L (5-15); CALCIUM 8.3 mg/dL (8.5-10.1); CHLORIDE 100 mmol/L (98-107); CREATININE 0.62 mg/dL (0.55-1.02)
[2020-01-14 08:45] LABS: MEAN CORPUSCULAR HEMOGLOBIN 32.9 pg (27.0-34.8); MEAN CORPUSCULAR HGB CONC 33.5 g/dL (32.4-35.8); MEAN CORPUSCULAR VOLUME 98.1 fL (80-100); MEAN PLATELET VOLUME 6.9 fL (7.4-10.4); PLATELET COUNT 210 x10^3/uL (130-400); RED BLOOD COUNT 2.71 x10^6/uL (3.82-5.3); RED CELL DISTRIBUTION WIDTH 19.7 % (9.6-15.2)
[2020-01-14] MEDS ORDERED: ALBUMIN HUMAN 25% 50 ML IV ONE (09:00)
[2020-01-14] MEDS ORDERED: SPIRONOLACTONE 50 MG TABLET PO SCH (09:00)
[2020-01-14] MEDS ORDERED: FUROSEMIDE 20 MG TABLET PO SCH (09:00)
[2020-01-14] MEDS: LEVETIRACETAM 500 MG TABLET PO SCH ×2 (09:52→21:01)
[2020-01-14] MEDS: SPIRONOLACTONE 100 MG TABLET PO SCH (09:52)
[2020-01-14] MEDS: FUROSEMIDE 20 MG TABLET PO SCH (09:52)
[2020-01-14] MEDS ORDERED: LIDOCAINE 1%, 10ML ONE (10:02)
[2020-01-14 10:05] LABS: MD YES
[2020-01-14 10:12] LABS: BAND#(MANUAL) 0.07 x10^3/uL; BANDS%(MANUAL) 2 % (0-7); EOS#(MANUAL) 0.07 x10^3/uL (0.0-0.4); EOS% (MANUAL) 2 % (1-7); LYMPHS% (MANUAL) 15 % (22-44); MONOS#(MANUAL) 0.07 x10^3/uL (0.3-2.7); MONOS% (MANUAL) 2 % (2-9); SEG#(MANUAL) 2.61 x10^3/uL (1.8-6.8); SEGS% (MANUAL) 79 % (42-75)
[2020-01-14 10:13] LABS: <PLATELET ESTIMATE> ADEQUATE; <PLT MORPHOLOGY> NORMAL PLT MORPH; ANISOCYTOSIS 1+; HYPOCHROMIA 1+; POLYCHROMASIA 1+
[2020-01-14] MEDS ORDERED: ALBUMIN HUMAN 25% 100 ML IV ONE ×2 (14:00)
[2020-01-14] MEDS: PANTOPRAZOLE 40MG TABLET PO SCH (17:07)
[2020-01-15 01:35] VITALS: BP 81/40
[2020-01-15 05:15] VITALS: BP 83/47
[2020-01-15] MEDS: PANTOPRAZOLE 40MG TABLET PO SCH (05:16)
[2020-01-15 06:14] LABS: ANION GAP 6 mmol/L (5-15); CALCIUM 7.6 mg/dL (8.5-10.1); CHLORIDE 105 mmol/L (98-107); CREATININE 0.84 mg/dL (0.55-1.02)
[2020-01-15 06:15] LABS: ALANINE AMINOTRANSFERASE 29 U/L (12-78); ALBUMIN 2.4 g/dL (3.4-5.0)
[2020-01-15 06:17] LABS: ALKALINE PHOSPHATASE 230 U/L (45-117); BILIRUBIN,TOTAL 5.5 mg/dL (0.2-1.0); TOTAL PROTEIN 4.6 g/dL (6.4-8.2)
[2020-01-15 06:22] LABS: MEAN CORPUSCULAR HGB CONC 33.2 g/dL (32.4-35.8); MEAN CORPUSCULAR VOLUME 99.2 fL (80-100); MEAN PLATELET VOLUME 7.4 fL (7.4-10.4); PLATELET COUNT 184 x10^3/uL (130-400); RED BLOOD COUNT 2.51 x10^6/uL (3.82-5.3); RED CELL DISTRIBUTION WIDTH 19.4 % (9.6-15.2)
[2020-01-15 06:52] LABS: MD YES
[2020-01-15 06:54] LABS: <PLATELET ESTIMATE> ADEQUATE; <PLT MORPHOLOGY> NORMAL PLT MORPH; ANISOCYTOSIS 1+; BASOS#(MANUAL) 0.04 x10^3/uL (0-0.1); BASOS% (MANUAL) 1 % (0-1); HYPOCHROMIA 1+; LYMPH#(MANUAL) 0.59 x10^3/uL (1-3.4); LYMPHS% (MANUAL) 14 % (22-44); MONOS#(MANUAL) 0.29 x10^3/uL (0.3-2.7); MONOS% (MANUAL) 7 % (2-9); POLYCHROMASIA 1+; SEG#(MANUAL) 3.28 x10^3/uL (1.8-6.8); SEGS% (MANUAL) 78 % (42-75)
[2020-01-15 07:07] VITALS: BP 89/42
[2020-01-15] MEDS ORDERED: SPIR100T PO (09:01)
[2020-01-15] MEDS ORDERED: FURO20TA3 PO (09:01)
[2020-01-15] MEDS ORDERED: CALCIUM CARBONATE 500 MG TAB.CHEW ONE (09:05)
[2020-01-15] MEDS: FUROSEMIDE 20 MG TABLET PO SCH (09:10)
[2020-01-15] MEDS: LEVETIRACETAM 500 MG TABLET PO SCH (09:10)
[2020-01-15] MEDS: SPIRONOLACTONE 100 MG TABLET PO SCH (09:10)
[2020-01-15] MEDS ORDERED: CALCIUM CARBONATE 500 MG TABLET PO PRN (09:30)
[2020-01-15 11:59] VITALS: BP 92/56
== END 2020-01-15 15:40 | disposition home or self-care (01) ==
LOC: ED 14:31 → EDIP 15:31 → SUATTDRO 15:51 → 4WST 18:17
PROVIDERS: ADMIT Hospitalist; ATTEND Family Medicine
PROC: 30233N1 Transfusion of Nonautologous Red Blood Cells into Peripheral Vein, Percutaneous Approach (ICD-10-PCS; principal; 2020-01-13)
PROC: 0W9G3ZZ Drainage of Peritoneal Cavity, Percutaneous Approach (ICD-10-PCS; 2020-01-13)
DX: K74.60 Unspecified cirrhosis of liver (principal); I95.9 Hypotension, unspecified; D68.9 Coagulation defect, unspecified; R18.8 Other ascites; E87.1 Hypo-osmolality and hyponatremia; K75.4 Autoimmune hepatitis; E80.6 Other disorders of bilirubin metabolism; D50.0 Iron deficiency anemia secondary to blood loss (chronic); E16.2 Hypoglycemia, unspecified; G40.909 Epilepsy, unspecified, not intractable, without status epilepticus; D64.9 Anemia, unspecified; Z79.899 Other long term (current) drug therapy; Z82.5 Family history of asthma and other chronic lower respiratory diseases; Z98.51 Tubal ligation status; Z82.49 Family history of ischemic heart disease and other diseases of the circulatory system; Z83.3 Family history of diabetes mellitus
CPT/HCPCS: J3490 ×2; 36415; 49083; 80048; 80053; 82042; 82945; 83615; 83690; 83735; 84100; 84157; 85025; 85610; 86850; 86870; 86900; 86902; 86922; 86923; 87070; 87075; 87205; 89051; 93005; 96374; 96375; 99291; G0378; J0696; J2354; P9047; C9113; J7030; P9016

== ENCOUNTER 2020-01-20 16:06 | Emergency (ER) | payer MEDICAID ==
[~2020-01-20] VITALS: Ht 165.1 cm; Wt 55.0 kg
[~2020-01-20 16:06] MED LIST changes: +SPIR100T PO
--- NOTE | 2020-01-20 16:20 | NUR ---
THIS IS A 59 YO F BIB EMS FROM [facility] W/ C/O ABD PAIN 3-4 DAYS. PT REPORTS SHE HAS HX OF ASCITES AND GETS DRAINED FREQUENTLY. PT REPORTS RECENT ADMIT HERE THIS MONTH FOR THE SAME. PT CONNECTED TO ALL MONITORING, VSS, NADN. PROVIDED WARM BLANKET FOR COMFORT. CALL LIGHT IN REACH, SIDE RAILS UPX2. AWAITING ED EVAL.
--- NOTE | 2020-01-20 16:40 | NUR ---
MED REC DONE.
[2020-01-20] MEDS ORDERED: SODIUM CHLORIDE FLUSH 10ML SYR IVF ONE (17:00)
--- NOTE | 2020-01-20 17:06 | NUR ---
STRAIGHT CATH URINE SAMPLE OBTAINED. SMALL PIECE OF ROUND PINK TISSUE COMING FROM URETHRA OBSERVED. NOTIFIED.
[2020-01-20 17:17] LABS: INTERNATIONAL NORMALIZED RATIO 1.09 (0.93-1.1); MEAN CORPUSCULAR HEMOGLOBIN 32.8 pg (27.0-34.8); MEAN CORPUSCULAR HGB CONC 33.3 g/dL (32.4-35.8); MEAN CORPUSCULAR VOLUME 98.3 fL (80-100); MEAN PLATELET VOLUME 7.4 fL (7.4-10.4); PLATELET COUNT 263 x10^3/uL (130-400); PROTHROMBIN TIME 11.6 Seconds (9.6-11.5)
[2020-01-20 17:20] LABS: ALANINE AMINOTRANSFERASE 46 U/L (12-78); ALBUMIN 2.1 g/dL (3.4-5.0); ANION GAP 7 mmol/L (5-15); CALCIUM 7.8 mg/dL (8.5-10.1); CHLORIDE 97 mmol/L (98-107); CREATININE 0.86 mg/dL (0.55-1.02)
[2020-01-20 17:21] LABS: MICROSCOPIC AUTO
[2020-01-20 17:22] LABS: ALKALINE PHOSPHATASE 368 U/L (45-117); TOTAL PROTEIN 5.1 g/dL (6.4-8.2)
--- NOTE | 2020-01-20 17:48 | NUR ---
PT TO IR.
[2020-01-20 18:23] LABS: MD YES
[2020-01-20 18:29] LABS: ANISOCYTOSIS 1+; BAND#(MANUAL) 0.06 x10^3/uL; BANDS%(MANUAL) 1 % (0-7); LYMPH#(MANUAL) 1.06 x10^3/uL (1-3.4); LYMPHS% (MANUAL) 18 % (22-44); MONOS#(MANUAL) 0.59 x10^3/uL (0.3-2.7); MONOS% (MANUAL) 10 % (2-9); SEG#(MANUAL) 4.19 x10^3/uL (1.8-6.8); SEGS% (MANUAL) 71 % (42-75)
[2020-01-20 18:30] LABS: <PLATELET ESTIMATE> ADEQUATE; <PLT MORPHOLOGY> NORMAL PLT MORPH; HYPOCHROMIA 1+; POLYCHROMASIA 1+
--- NOTE | 2020-01-20 18:40 | NUR ---
PT REPORTS RELIEF OF PAIN POST PARACENTESIS.
[2020-01-20] MEDS ORDERED: SODIUM CHLORIDE 0.9% 1,000ML IVBOLUS ONE ×2 (19:00→20:00)
--- NOTE | 2020-01-20 19:06 | NUR ---
REPORT GIVEN TO CASSY OSBORN.
--- NOTE | 2020-01-20 19:11 | NUR ---
Report received from ANURAG Samayoa. This RN to assume care. Awaiting lab results at this time. Admin fluid bolus per mar due to patient's BP.
[2020-01-20] MEDS ORDERED: HALOPERIDOL 5 MG TABLET ONE (20:02)
--- NOTE | 2020-01-20 20:14 | NUR ---
Awaiting lab results for fluid from paracentesis. Patient BP remains in the 80s. Admin another bolus per oct. Patient states, "I just want to go home. I'm almost ready to just get dressed and leave." Patient agreed to reevaluate after the fluid bolus.
[2020-01-20 20:38] LABS: CELLS COUNTED 55
--- NOTE | 2020-01-20 21:31 | NUR ---
Patient BP increased to her baseline. Discharge instructions given. All questions and concerns addressed. Patient ambulatory with a steady gait. Belongings with patient.
[2020-01-20 21:42] VITALS: BP 88/49
== END 2020-01-20 21:44 | disposition home or self-care (01) ==
LOC: ED 17:19
DX: K70.31 Alcoholic cirrhosis of liver with ascites (principal)
CPT/HCPCS: 36415; 49083; 80053; 81001; 82042; 83615; 83690; 85025; 85610; 85730; 87070; 87086; 87205; 89051; 99285; J7030; 87077

== ENCOUNTER 2020-01-25 07:13 | Emergency (ER) | payer MEDICAID ==
[~2020-01-25] VITALS: Ht 165.1 cm; Wt 56.0 kg
--- NOTE | 2020-01-25 07:24 | NUR ---
Dia REICH PA AT BEDSIDE TO EVALUATE PT.
[2020-01-25] MEDS ORDERED: LIDOCAINE 1%, 20ML ONE (07:57)
--- NOTE | 2020-01-25 08:30 | NUR ---
pt to imaging
[2020-01-25] MEDS ORDERED: LIDOCAINE-MPF 1%, 5ML INFIL ONE (09:00)
--- NOTE | 2020-01-25 09:13 | NUR ---
discharge instructions reviewed.
[2020-01-25 09:17] VITALS: BP 90/56
== END 2020-01-25 10:26 | disposition home or self-care (01) ==
LOC: ED 07:30
DX: K70.31 Alcoholic cirrhosis of liver with ascites (principal); E87.1 Hypo-osmolality and hyponatremia; E87.6 Hypokalemia; R63.0 Anorexia
CPT/HCPCS: 49083; 99285; J3490

== ENCOUNTER 2020-01-28 15:24 | Emergency (ER) | payer MEDICAID ==
[~2020-01-28] VITALS: Ht 165.1 cm; Wt 54.0 kg
[2020-01-28] MEDS ORDERED: LIDOCAINE 1%, 10ML ONE (17:03)
[2020-01-28 18:34] VITALS: BP 91/40
--- NOTE | 2020-01-28 18:34 | NUR ---
PT HYPOTENSIVE AFTER PARACENTESIS. PT SAID SHE WANTED TO GO HOME. PT UNDERSTANDS THE RAMIFICATIONS OF GOING HOME WITH A LOW BP. MD EXPLAINED TO PT SHE SHOULD FALL AND HIT HER HEAD AND POTENTIALL GET A BRAIN BLEED AND . PT UNDERSTANDS THIS AND STILL WANTS TO LEAVE.
== END 2020-01-28 19:07 | disposition home or self-care (01) ==
LOC: ED 19:06
DX: K70.31 Alcoholic cirrhosis of liver with ascites (principal); I95.81 Postprocedural hypotension
CPT/HCPCS: 49083; 99285; J3490

== ENCOUNTER 2020-02-01 13:44 | Emergency (ER) | payer MEDICAID ==
[~2020-02-01] VITALS: Ht 165.1 cm; Wt 56.0 kg
[2020-02-01 13:53] VITALS: BP 94/53
--- NOTE | 2020-02-01 13:57 | NUR ---
Pt is ascetic and reports she needs her abd drained. Pt reports chronic liver history. Pt is jaundice and has yellow sclera. Pt rpeorts feeling weaker and not well. Pt wants to be able to take a deep breath without feeling so full or so much pressure on her abd. Pt denies any truama. Pt connected to monitors, pt is HOTN but she reports her bp is always low. Call light in reach and awaiting further orders.
[2020-02-01] MEDS ORDERED: LIDOCAINE 1%, 10ML ONE (14:06)
--- NOTE | 2020-02-01 15:35 | NUR ---
Patient/Caregiver given discharge instructions and they have confirmed that they understand the instructions. Patient ambulatory with steady gait.
== END 2020-02-01 15:37 | disposition home or self-care (01) ==
LOC: ED 14:26
DX: R18.8 Other ascites (principal); R10.9 Unspecified abdominal pain
CPT/HCPCS: 49083; 99285; J3490

== ENCOUNTER 2020-02-03 11:47 | Emergency (ER) | payer MEDICAID ==
[~2020-02-03] VITALS: Ht 165.1 cm; Wt 56.0 kg
[~2020-02-03 11:47] MED LIST changes: -PANT40TA5 PO; +PANT40TA6 PO
--- NOTE | 2020-02-03 12:06 | NUR ---
BIB BY [facility] FOR MECHANICAL GLF. HIT RIGHT SIDE OF HEAD. NO ASSESSED OR REPORTED TRAUMA OTHER THAN REPORTING RIGHT SIDED HERNANDEZ NO LOC, NO BLOOD THINNER (DOES HAVE ADVANCED CIRRHOSIS) HYPOTENSIVE 85/40 (REPORTS NORMAL SBP 90), HR 76. BP IS 91/56 NOW. PT'S AOX4. RESPS EVEN AND UNLABORED. ALL MONITORS IN PLACE. CALL LIGHT WITHIN REACH. PT DENIES ANY OTHER SX.
--- NOTE | 2020-02-03 12:17 | NUR ---
PIV EST ON L AC WITH NO COMPLICATIONS. PT TOLERATED WELL.
--- NOTE | 2020-02-03 12:28 | NUR ---
EDMD AT BEDSIDE TO EVALUATE AT THIS TIME.
[2020-02-03 12:52] VITALS: BP 92/42
--- NOTE | 2020-02-03 12:53 | NUR ---
Patient given discharge instructions and they have confirmed that they understand the instructions. PT HYPOTENSIVE AND EDMD OK'D TO DC. PT WHEELED TO DC. TAXI VOUCHER GIVEN AT [place].
== END 2020-02-03 12:55 ==
LOC: ED 12:49
DX: S00.03XA Contusion of scalp, initial encounter (principal); W01.0XXA Fall on same level from slipping, tripping and stumbling without subsequent striking against object, initial encounter; Y93.89 Activity, other specified; Y92.098 Other place in other non-institutional residence as the place of occurrence of the external cause; Y99.8 Other external cause status
CPT/HCPCS: 99283

== ENCOUNTER 2020-02-12 10:25 | Emergency (ER) | payer MEDICAID ==
[~2020-02-12] VITALS: Ht 165.1 cm; Wt 55.0 kg
[~2020-02-12 10:25] MED LIST changes: +PANT40TA5 PO; -PANT40TA6 PO
--- NOTE | 2020-02-12 11:10 | NUR ---
PT PRESENTS TO ED SEEKING PARACENTESIS, PT HAS AUTOIMMUNE HEPATITIS REQUIRING FREQUENT PARACENTESIS, LAST SEVERAL DAYS AGO. PT DENIES SYMPTOMS OTHER THAN ASCITES. PT ATTACHED TO BP AND SPO2 MONITORS, CALL LIGHT IN REACH. PT DRESSED IN GOWN, BLANKET PROVIDED. PT AWAITING IR FOR PARACENTESIS.
[2020-02-12] MEDS ORDERED: LIDOCAINE 1%, 10ML ONE (11:46)
--- NOTE | 2020-02-12 12:19 | NUR ---
PT IN IR FOR PARACENTESIS.
--- NOTE | 2020-02-12 12:53 | NUR ---
pt back from paracentesis, reassessed by VLADIMIR Castro. pt to be discharged.
[2020-02-12 14:07] VITALS: BP 97/56
--- NOTE | 2020-02-12 14:22 | NUR ---
VLADIMIR Bledsoe notified bp 85/49, instructed RN to ambulate pt then recheck bp. recheck after ambulation was 97/56, pt denies sx. gave rn instructions to dc pt. pt reports she is feeling much better than when she arrived. pt given wc escort to dc desk, dc'd with own walker. pt given cab voucher. pt a&o, resps even and unlabored, pt given dc instructions. akash at [place].
== END 2020-02-12 14:23 | disposition home or self-care (01) ==
LOC: ED 11:09
DX: K70.31 Alcoholic cirrhosis of liver with ascites (principal); K73.2 Chronic active hepatitis, not elsewhere classified; R10.84 Generalized abdominal pain
CPT/HCPCS: 49083; 99285; J3490

== ENCOUNTER 2020-02-18 08:25 | Emergency (ER) | payer MEDICAID ==
[~2020-02-18] VITALS: Ht 165.1 cm; Wt 92.0 kg
--- NOTE | 2020-02-18 08:33 | NUR ---
PT WITH C/O ABD PAIN DISCOMFORT 4/10, DIFFUSE, NO REBOUND. STATES PAIN IS "FROM ALL THE STRECTHING", PT WITH TAUT ACITIC ABD ON EXAM. PT WITH LIVER FAILURE, REQUIRES FREQUENT PARACENTESIS APPROX Q 3 DAYS. PT WITH HX OF AUTOIMMUNE LIVER FAILURE, STATES IT HAS BEEN GOING ON FOR YRS, DENIES HAVING GI MD. PT TO BP, CONT PULSE OX.
[2020-02-18] MEDS ORDERED: LIDOCAINE 1%, 10ML ONE (08:55)
--- NOTE | 2020-02-18 08:55 | NUR ---
Lizet alonso in [facility] - 02/18/20 at 0856 by HUNTER PT STATE MUCH PAIN RELIEF POST TORADOL ADMIN, PT NOW RESTING COMFORTABLY ON GURNY, PREVIOUSLY WAS NOT ABLE TO LAY BACK ON GURNEY, SAT AT THE EDGE GRIMICING. PT STATES "WHAT WAS THAT STUFF IT WORKED GREAT"
[2020-02-18 10:28] VITALS: BP 90/57
--- NOTE | 2020-02-18 10:29 | NUR ---
BACK FROM PARACENTESIS, VSS
[2020-02-18] MEDS ORDERED: ATROPINE SYRINGE 0.1 MG/ML, 10ML ONE (16:16)
== END 2020-02-18 12:13 ==
LOC: ED 10:42
DX: K73.9 Chronic hepatitis, unspecified (principal); R18.8 Other ascites; E87.1 Hypo-osmolality and hyponatremia; E87.6 Hypokalemia; I95.9 Hypotension, unspecified
CPT/HCPCS: 49083; 99285; J3490

== ENCOUNTER 2020-02-23 11:23 | Emergency (ER) | payer MEDICAID ==
[~2020-02-23] VITALS: Ht 165.1 cm; Wt 55.0 kg
--- NOTE | 2020-02-23 11:36 | NUR ---
Patient BIB [facility] due to increase Ascitic fluid in abdomen, last paracentesis 4-5 days ago at which time 6 Liters were removed. Patient is A&Ox4, resting comfortably in bed, no c/o of pain, no further needs at this time.
[2020-02-23 12:07] LABS: MEAN CORPUSCULAR HEMOGLOBIN 31.8 pg (27.0-34.8); MEAN CORPUSCULAR HGB CONC 33.3 g/dL (32.4-35.8); MEAN CORPUSCULAR VOLUME 95.5 fL (80-100); MEAN PLATELET VOLUME 7.6 fL (7.4-10.4); PLATELET COUNT 334 x10^3/uL (130-400); RED CELL DISTRIBUTION WIDTH 15.1 % (9.6-15.2)
[2020-02-23 12:08] LABS: INTERNATIONAL NORMALIZED RATIO 1.01 (0.93-1.1); PROTHROMBIN TIME 10.7 Seconds (9.6-11.5)
[2020-02-23 12:10] LABS: ALANINE AMINOTRANSFERASE 118 U/L (12-78); ALBUMIN 1.9 g/dL (3.4-5.0); ANION GAP 8 mmol/L (5-15); CALCIUM 8.4 mg/dL (8.5-10.1); CHLORIDE 100 mmol/L (98-107); CREATININE 1.34 mg/dL (0.55-1.02)
[2020-02-23 12:12] LABS: ALKALINE PHOSPHATASE 680 U/L (45-117); BILIRUBIN,TOTAL 3.9 mg/dL (0.2-1.0); TOTAL PROTEIN 5.7 g/dL (6.4-8.2)
[2020-02-23 12:17] LABS: MD YES
--- NOTE | 2020-02-23 12:21 | NUR ---
Patient is resting comfortably in bed, no c/o pain, patient anxious about getting paracentesis, no further needs at this time.
[2020-02-23 12:32] LABS: BAND#(MANUAL) 0.06 x10^3/uL; BANDS%(MANUAL) 1 % (0-7); LYMPH#(MANUAL) 0.41 x10^3/uL (1-3.4); LYMPHS% (MANUAL) 7 % (22-44); MONOS#(MANUAL) 0.58 x10^3/uL (0.3-2.7); MONOS% (MANUAL) 10 % (2-9); SEG#(MANUAL) 4.76 x10^3/uL (1.8-6.8); SEGS% (MANUAL) 82 % (42-75)
[2020-02-23] MEDS ORDERED: LIDOCAINE 1%, 10ML ONE (12:33)
[2020-02-23 12:34] LABS: ANISOCYTOSIS 1+; HYPOCHROMIA 1+; POLYCHROMASIA 1+
[2020-02-23 12:35] LABS: <PLATELET ESTIMATE> ADEQUATE; <PLT MORPHOLOGY> NORMAL PLT MORPH
--- NOTE | 2020-02-23 12:37 | NUR ---
Patient taken to IR for paracentesis.
--- NOTE | 2020-02-23 13:26 | NUR ---
Patient back from paracentesis, resting comfortably in bed, no further needs at this time.
[2020-02-23 13:49] VITALS: BP 89/52
== END 2020-02-23 14:03 | disposition home or self-care (01) ==
LOC: ED 12:13
DX: K74.60 Unspecified cirrhosis of liver (principal); R18.8 Other ascites; R94.31 Abnormal electrocardiogram [ECG] [EKG]; R06.02 Shortness of breath
CPT/HCPCS: 36415; 49083; 80053; 85025; 85610; 85730; 93005; 99285; J3490

== ENCOUNTER 2020-03-01 09:33 | Emergency (ER) | payer MEDICAID ==
[~2020-03-01] VITALS: Ht 165.1 cm; Wt 55.0 kg
--- NOTE | 2020-03-01 09:39 | NUR ---
pt biba for paracentesis of ascites, chronic in nature. pt states last paracentesis was approx 1 week ago, pt has been released from service at her GI specialist as she has missed too many appts d/t transportation barrier. pt is a&o, resps even and unlabored. pt speaking in full sentences without difficulty. bp and spo2 monitors in place. call light in reach. awaiting provider and dispo.
[2020-03-01] MEDS ORDERED: LIDOCAINE 1%, 10ML ONE (10:06)
--- NOTE | 2020-03-01 11:55 | NUR ---
PARACENTESIS COMPLETE, VS REASSESSED. HARDEEP GARCIA NOTIFIED BP 85/47, NO ORDERS RECEIVED. SOCIAL WORK CONSULT REQUESTED TO ASSIST PT IN ESTABLISHING TRANSPORT TO GI FOLLOW UP APPTS. HARDEEP DICKSON'Antonio RN TO DC PT ONCE SW HAS SPOKEN TO PT.
[2020-03-01 12:52] VITALS: BP 86/47
--- NOTE | 2020-03-01 12:57 | NUR ---
md ricci notified pt's bp is 86/47, instructed RN to provide pt with PO fluids and recheck. Pt took two sips of water and refused anymore, pt refuses to stay for monitoring, requesting discharge. pt given dc instructions and script, ambulatory with steady gait, given wc escort to dc. pt had own walker at dc. pt a&o, resps even and unlabored, nadn at dc.
== END 2020-03-01 12:58 | disposition home or self-care (01) ==
LOC: ED 10:05
DX: R18.8 Other ascites (principal); R10.84 Generalized abdominal pain
CPT/HCPCS: 49083; 99285; J3490

== ENCOUNTER 2020-03-05 11:39 | Emergency (ER) | payer MEDICAID ==
[~2020-03-05] VITALS: Ht 165.1 cm; Wt 55.0 kg
--- NOTE | 2020-03-05 12:11 | NUR ---
PER IR, NO PIV NEEDED FOR PROCEDURE.
--- NOTE | 2020-03-05 12:19 | NUR ---
CONSENT SIGNED FOR PARACENTESIS. PT RESTING COMFORTABLY ON GURNEY, WATCHING TV. GERONIMO.
[2020-03-05] MEDS ORDERED: LIDOCAINE 1%, 10ML ONE (12:36)
--- NOTE | 2020-03-05 12:54 | NUR ---
PT TAKEN TO IR
--- NOTE | 2020-03-05 13:27 | NUR ---
PT BACK FROM IR. CHART UP FOR RECHECK.
[2020-03-05 13:29] VITALS: BP 89/52
== END 2020-03-05 14:39 | disposition home or self-care (01) ==
LOC: ED 12:09
DX: K74.60 Unspecified cirrhosis of liver (principal); R10.84 Generalized abdominal pain
CPT/HCPCS: 49083; 99285; J3490

== ENCOUNTER 2020-03-11 08:26 | Emergency (ER) | payer MEDICAID ==
[~2020-03-11] VITALS: Ht 165.1 cm; Wt 58.0 kg
--- NOTE | 2020-03-11 08:28 | NUR ---
BIB [facility] FOR ABD SWELLING RELATED TO PSIRRROSIS OF LIVER. PT RECENTLY HAD PARACENTISIS 2-3 DAYS PRIOR AND REMOVED 6 LITERS. PT STATED SHE IS HER FOR ANOTHER PARACENTISIS.
[2020-03-11] MEDS ORDERED: LIDOCAINE 1%, 10ML ONE (08:49)
--- NOTE | 2020-03-11 08:58 | NUR ---
IR AT BEDSIDE TO SET UP PARACENTISIS.
--- NOTE | 2020-03-11 09:35 | NUR ---
IR PARACENTESIS COMPLETE. TOTAL OF 6 LITERS TAKEN. PT STATES POSITIVE RELIEF OF SYMPTOMS.
--- NOTE | 2020-03-11 09:58 | NUR ---
PT REPORT FROM ANURAG STOUT. PT TO BE DC'D
--- NOTE | 2020-03-11 10:05 | NUR ---
PT STATES SHE USUALLY GOES HOME PER TAXI; TAXI VOUCHER PROVIDED.
[2020-03-11 10:40] VITALS: BP 84/55
== END 2020-03-11 10:42 | disposition home or self-care (01) ==
LOC: ED 09:54
DX: K74.60 Unspecified cirrhosis of liver (principal); R18.8 Other ascites; R10.84 Generalized abdominal pain
CPT/HCPCS: 49083; 99285; J3490

== ENCOUNTER 2020-03-16 15:29 | Emergency (ER) | payer MEDICAID ==
[~2020-03-16] VITALS: Ht 157.5 cm; Wt 68.0 kg
[2020-03-16] MEDS ORDERED: ALBUMIN HUMAN 25% 100 ML IV ONE ×2 (16:00→18:00)
--- NOTE | 2020-03-16 16:37 | NUR ---
ALBUMIN INFUSING PER ORDERS.
--- NOTE | 2020-03-16 16:51 | NUR ---
IT CORPORATE RECRUITER: PT TO IMAGING
[2020-03-16] MEDS ORDERED: LIDOCAINE 1%, 10ML ONE (16:55)
--- NOTE | 2020-03-16 17:00 | NUR ---
OFF FLOOR TO IR FOR PARACENTESIS
--- NOTE | 2020-03-16 17:50 | NUR ---
RETURNED FROM IR. INFORMED THAT 9 LITERS REMOVED. DESPITE ALBUMIN GIVEN BP LOWER ON RETURN. MADE AWARE AND ORDER RECEIVED FOR ADDITIONAL ALBUMIN
--- NOTE | 2020-03-16 18:15 | NUR ---
ALBUMIN INFUSING. WILL CONTINUE TO MONITOR
--- NOTE | 2020-03-16 19:02 | NUR ---
REPORT TO KAMLA OSBORN. MADE AWARE PT NEEDS TO SIGN AMA PAPER WORK SHE WANTS TO GO HOME INSTEAD OF ADMISSION. ALBUMIN INFUSING AT THIS TIME
[2020-03-16 20:12] VITALS: BP 89/53
== END 2020-03-16 20:18 | disposition left against medical advice (07) ==
LOC: ED 18:40
DX: K70.31 Alcoholic cirrhosis of liver with ascites (principal); I95.9 Hypotension, unspecified
CPT/HCPCS: 49083; 96365; 96366; 99285; J3490; P9047

== ENCOUNTER 2020-03-23 13:36 | Emergency (ER) | payer MEDICAID ==
[~2020-03-23] VITALS: Ht 165.1 cm; Wt 48.0 kg
--- NOTE | 2020-03-23 13:47 | NUR ---
SHAWN. REPORT RECEIVED FROM EMS. PT HERE FOR PARACENTESIS D/T ASCITIS. DENIES ABD PAIN/N/V/D. PT'S AOX4. RESPS EVEN AND UNLABORED. BP/SPO2 MONITORS IN PLACE. CALL LIGHT WITHIN REACH.
--- NOTE | 2020-03-23 14:22 | NUR ---
EDMD AT BEDSIDE FOR EVALUATION AT THIS TIME.
--- NOTE | 2020-03-23 14:50 | NUR ---
PT RESTING IN [facility]. PT'S AOX4. RESPS EVEN AND UNLABORED.
[2020-03-23] MEDS ORDERED: LIDOCAINE 1%, 10ML ONE (15:24)
--- NOTE | 2020-03-23 15:28 | NUR ---
PT IN IR FOR PARACENTESIS AT THIS TIME.
--- NOTE | 2020-03-23 16:19 | NUR ---
PT BACK TO ROOM FROM IR AT THIS TIME.
[2020-03-23 16:33] VITALS: BP 86/52
--- NOTE | 2020-03-23 16:36 | NUR ---
PT RESTING IN [facility]. PT'S AOX4. RESPS EVEN AND UNLABORED. PT STATED "I FEEL MUCH BETTER"
--- NOTE | 2020-03-23 17:46 | NUR ---
Patient given discharge instructions and they have confirmed that they understand the instructions. Patient ambulatory with steady gait. pt stated 'my bp is always low." edmd notified hypotensive at in.
== END 2020-03-23 17:47 | disposition home or self-care (01) ==
LOC: ED 13:43
DX: R18.8 Other ascites (principal); K75.4 Autoimmune hepatitis; K74.60 Unspecified cirrhosis of liver; K75.89 Other specified inflammatory liver diseases; I95.0 Idiopathic hypotension
CPT/HCPCS: 49083; 99285; J3490

== ENCOUNTER 2020-04-01 15:47 | Emergency (ER) | payer MEDICAID ==
[~2020-04-01] VITALS: Ht 160 cm; Wt 56.4 kg
--- NOTE | 2020-04-01 16:02 | NUR ---
PT BIB [facility] FOR "MY ASCITES." PT REPORTS THAT SHE HAS HER BELLY TAPPED EVERY 5 DAYS. PT REPORTS HX OF AUTOIMMUNE HEPATITIS AND HAS NEVER DRANK ALCOHOL HABITUALLY. PT ON MONITOR. LINNETTE ESTRADA WAS AT BEDSIDE. PT DENIES N/V/D OR ANY ABDOMINAL PAIN OR SOB.
[2020-04-01] MEDS ORDERED: LIDOCAINE 1%, 10ML ONE (16:10)
[2020-04-01 17:12] VITALS: BP 85/48
--- NOTE | 2020-04-01 17:15 | NUR ---
TASK RN: VITALS TAKEN, PT WITH BP 82/48. ERMD UPDATED, PT NORMALLY RUNNING LOW SBPS 90S. NO ORDERS RECIEVED. PT ASYMPTOMATIC
== END 2020-04-01 17:47 ==
LOC: ED 17:41
DX: K70.30 Alcoholic cirrhosis of liver without ascites (principal); R10.84 Generalized abdominal pain
CPT/HCPCS: 49083; 99285; J3490

== ENCOUNTER 2020-04-03 15:10 | Inpatient (IN) | payer MEDICAID ==
[~2020-04-03] VITALS: Ht 165.1 cm; Wt 66.2 kg
[~2020-04-03 15:10] MED LIST changes: -PANT40TA5 PO; +PANT40TA6 PO
--- NOTE | 2020-04-03 15:19 | NUR ---
BIB [facility] FROM HOME. PT C/O GENERAL FATIGUE. PT HAS NOT EATEN IN A COUPLE DAYS, DAUGHTER USUALLY BRINGS PT FOOD. HX: HYPOTENSION, CIRRHOSIS, SEIZURES. MEDS: KEPPRA. SHAREPOINT CONSULTANT [facility]: BP 84/56, PT STATES THIS IS HER BASELINE. PT STATES SHE HAS BEEN DRINKNG WATER EVERY DAY. TASK RN AT BEDSIDE FOR PIV PLACEMENT AND LAB DRAW. PT CONNECTED TO MONITORING. PT STATES SHE FEELS ALL OVER FATIGUE AND HERNANDEZ.
--- NOTE | 2020-04-03 15:36 | NUR ---
UNABLE TO PLACE PIV AT THIS TIME.
[2020-04-03] MEDS ORDERED: SODIUM CHLORIDE 0.9% 1,000ML IVBOLUS ONE (16:30)
--- NOTE | 2020-04-03 17:00 | NUR ---
PIV PLACED BY TASK RN USING US. IVF RUNNING PER OCT. URINE COLLECTED VIA STRAIGHT CATH AND TAKEN TO LAB. LAB AT BEDSIDE FOR SECOND SET BLOOD CX.
[2020-04-03 17:14] LABS: MICROSCOPIC INDICATED
[2020-04-03 17:22] LABS: INTERNATIONAL NORMALIZED RATIO 1.13 (0.93-1.1); PROTHROMBIN TIME 11.7 Seconds (9.6-11.5)
[2020-04-03 17:23] LABS: BASOPHILS # (AUTO) 0.02 x10^3/uL (0-0.1); BASOPHILS % (AUTO) 0 % (0-1); EOSINOPHILS % (AUTO) 0 % (1-7); LYMPHOCYTES # (AUTO) 1.54 x10^3/uL (1-3.4); LYMPHOCYTES % (AUTO) 19 % (22-44); MD NO; MEAN CORPUSCULAR HEMOGLOBIN 30.5 pg (27.0-34.8); MEAN CORPUSCULAR HGB CONC 33.2 g/dL (32.4-35.8); MEAN PLATELET VOLUME 6.8 fL (7.4-10.4); MONOCYTES # (AUTO) 0.37 x10^3/uL (0.2-0.8); MONOCYTES % (AUTO) 5 % (2-9); NEUTROPHILS # (AUTO) 6.28 x10^3/uL (1.8-6.8); NEUTROPHILS % (AUTO) 77 % (42-75); PLATELET COUNT 274 x10^3/uL (130-400); RED BLOOD COUNT 3.11 x10^6/uL (3.82-5.3); RED CELL DISTRIBUTION WIDTH 19.5 % (9.6-15.2)
[2020-04-03 17:24] LABS: ALANINE AMINOTRANSFERASE 116 U/L (12-78); ALBUMIN 1.8 g/dL (3.4-5.0); ANION GAP 8 mmol/L (5-15); CALCIUM 8.5 mg/dL (8.5-10.1); CHLORIDE 99 mmol/L (98-107); CREATININE 2.54 mg/dL (0.55-1.02)
[2020-04-03 17:27] LABS: ALKALINE PHOSPHATASE 505 U/L (45-117); BILIRUBIN,TOTAL 9.5 mg/dL (0.2-1.0); TOTAL PROTEIN 5.1 g/dL (6.4-8.2)
--- NOTE | 2020-04-03 17:35 | NUR ---
RECEIVED CRITICAL LAB LEVEL: POTASSIUM 6.6. NOTIFIED
--- NOTE | 2020-04-03 18:22 | NUR ---
MEDS REQUESTED FROM PHARMACY.
[2020-04-03] MEDS ORDERED: ALBUTEROL 0.5%, 20ML NPPB ONE (18:30)
[2020-04-03] MEDS ORDERED: DEXTROSE 50%, 50ML SYRINGE IVPush ONE (18:30)
[2020-04-03] MEDS ORDERED: INSULIN REGULAR 100 UNITS/ML, 3ML VIAL IVPush ONE (18:30)
[2020-04-03] MEDS ORDERED: SODIUM BICARB 8.4%, 50ML SYRINGE IVPush ONE (18:30)
[2020-04-03] MEDS ORDERED: FUROSEMIDE 40 MG/4 ML IVPush ONE (18:30)
[2020-04-03] MEDS ORDERED: ALBUTEROL SULFATE 2.5 MG/3 ML ONE (18:36)
[2020-04-03] MEDS ORDERED: INSULIN SINGLE DOSE, ER ONE (18:37)
[2020-04-03] MEDS ORDERED: FUROSEMIDE 40 MG/4 ML ONE (18:37)
[2020-04-03] MEDS ORDERED: ONDANSETRON ODT 4 MG PO PRN (19:30)
[2020-04-03] MEDS ORDERED: POLYETHYLENE GLYCOL 17 GM PACKET PO PRN (19:30)
[2020-04-03] MEDS ORDERED: CEFTRIAXONE PMX 1GM/50ML 50 ML IV SCH (19:30)
[2020-04-03] MEDS ORDERED: BISACODYL 10 MG SUPP PR PRN (19:30)
--- NOTE | 2020-04-03 20:09 | NUR ---
PT FSBG 116. ONE HOUR AFTER INSULIN AND DEXTROSE. PT RESTING COMFORTABLY ON GURNEY. NADN.
--- NOTE | 2020-04-03 20:48 | NUR ---
REPORT GIVEN TO OLIVER OSBORN
[2020-04-03] MEDS ORDERED: MIDODRINE 5 MG TABLET PO SCH (21:00)
[2020-04-03] MEDS ORDERED: SODIUM BICARBONATE 650 MG TABLET PO SCH (21:00)
[2020-04-03] MEDS: LEVETIRACETAM 500 MG TABLET PO SCH (21:50)
[2020-04-03] MEDS: CALCIUM/VITAMIN D3 250-125 TABLET PO SCH (21:50)
[2020-04-03] MEDS: LACTOBACILLUS CHEW TABLET PO SCH (21:50)
[2020-04-03] MEDS: ALBUMIN HUMAN 25% 100 ML IV SCH (21:51)
[2020-04-03] MEDS: FERROUS SULFATE 325 MG TABLET PO SCH (22:04)
[2020-04-03 22:31] VITALS: BP 85/52
[2020-04-04 01:37] VITALS: BP 85/55
[2020-04-04 03:33] LABS: MD YES; MEAN CORPUSCULAR HEMOGLOBIN 31.8 pg (27.0-34.8); MEAN CORPUSCULAR HGB CONC 34.1 g/dL (32.4-35.8); MEAN CORPUSCULAR VOLUME 93.4 fL (80-100); PLATELET COUNT 264 x10^3/uL (130-400); RED BLOOD COUNT 3.17 x10^6/uL (3.82-5.3); RED CELL DISTRIBUTION WIDTH 19.8 % (9.6-15.2)
[2020-04-04 03:39] LABS: INTERNATIONAL NORMALIZED RATIO 1.17 (0.93-1.1); PROTHROMBIN TIME 12.1 Seconds (9.6-11.5)
[2020-04-04 04:03] LABS: ALANINE AMINOTRANSFERASE 113 U/L (12-78); ALBUMIN 1.8 g/dL (3.4-5.0); ANION GAP 10 mmol/L (5-15); CALCIUM 8.1 mg/dL (8.5-10.1); CHLORIDE 102 mmol/L (98-107)
[2020-04-04 04:06] LABS: ALKALINE PHOSPHATASE 485 U/L (45-117); BILIRUBIN,TOTAL 8.5 mg/dL (0.2-1.0); TOTAL PROTEIN 4.8 g/dL (6.4-8.2)
[2020-04-04 05:04] LABS: CHLORIDE,URINE RANDOM 88 mmol/L; POTASSIUM,URINE RANDOM 32 mmol/L; SODIUM,URINE RANDOM 48 mmol/L
[2020-04-04] MEDS: ALBUMIN HUMAN 25% 100 ML IV SCH ×3 (05:17→23:08)
[2020-04-04] MEDS: PANTOPRAZOLE 40MG TABLET PO SCH ×2 (05:18→16:37)
[2020-04-04 05:37] LABS: EOS#(MANUAL) 0.08 x10^3/uL (0.0-0.4); EOS% (MANUAL) 1 % (1-7); LYMPH#(MANUAL) 0.75 x10^3/uL (1-3.4); LYMPHS% (MANUAL) 9 % (22-44); MONOS#(MANUAL) 0.58 x10^3/uL (0.3-2.7); MONOS% (MANUAL) 7 % (2-9); SEG#(MANUAL) 6.89 x10^3/uL (1.8-6.8); SEGS% (MANUAL) 83 % (42-75)
[2020-04-04 05:38] LABS: ANISOCYTOSIS 1+; TOXIC GRAN 1+
[2020-04-04 05:40] LABS: OVALOCYTES 1+
[2020-04-04 05:41] LABS: <PLATELET ESTIMATE> ADEQUATE; MICROCYTOSIS 1+; POLYCHROMASIA 1+
[2020-04-04 05:42] LABS: SMALL PLATELETS 1+
[2020-04-04 07:18] VITALS: BP 82/51
[2020-04-04] MEDS: SODIUM BICARBONATE 650 MG TABLET PO SCH ×3 (10:19→21:06)
[2020-04-04] MEDS: LEVETIRACETAM 500 MG TABLET PO SCH ×2 (10:20→21:06)
[2020-04-04] MEDS: LACTOBACILLUS CHEW TABLET PO SCH ×3 (10:22→21:06)
[2020-04-04] MEDS: MIDODRINE 5 MG TABLET PO SCH ×3 (10:23→21:07)
[2020-04-04] MEDS: CALCIUM/VITAMIN D3 250-125 TABLET PO SCH ×2 (10:25→21:07)
[2020-04-04] MEDS ORDERED: SODIUM BICARB 8.4%,50ML SYR. 150 MEQ in DEXTROSE 5% 1,000 ML IV SCH (10:30)
[2020-04-04] MEDS: SENNA/DOCUSATE TABLET PO SCH (10:54)
[2020-04-04 13:06] VITALS: BP 93/55
[2020-04-04] MEDS ORDERED: PHARMACY MAY ADJ FOR RENAL FX MC PRN (14:00)
[2020-04-04] MEDS: HEPARIN 5,000 UNITS/ML, 1ML SQ SCH (16:40)
[2020-04-04] MEDS: AMPICILLIN/SULBACTAM 3 GM in SODIUM CHLORIDE 0.9% 100 ML IV SCH ×2 (16:41→23:08)
[2020-04-04 17:54] LABS: ANION GAP 11 mmol/L (5-15); CALCIUM 7.1 mg/dL (8.5-10.1); CHLORIDE 96 mmol/L (98-107); CREATININE 2.27 mg/dL (0.55-1.02)
[2020-04-04 20:49] VITALS: BP 83/49
[2020-04-05] VITALS (7 sets, daily range): BP systolic 60–75; BP diastolic 32–55
[2020-04-05] MEDS: HEPARIN 5,000 UNITS/ML, 1ML SQ SCH ×3 (00:25→16:05)
[2020-04-05] MEDS ORDERED: SODIUM CHLORIDE 0.9%, 500ML IVBOLUS ONE (01:00)
[2020-04-05] MEDS ORDERED: DEXTROSE 4 GM TAB.CHEW PO PRN (02:00)
[2020-04-05] MEDS ORDERED: DEXTROSE 50%, 50ML SYRINGE IVPush PRN (02:00)
[2020-04-05] MEDS: ALBUMIN HUMAN 5% 500 ML IV ONE ×2 (02:00→02:12)
[2020-04-05] MEDS ORDERED: GLUCAGON 1 MG IM PRN (02:00)
[2020-04-05 03:52] LABS: INTERNATIONAL NORMALIZED RATIO 1.47 (0.93-1.1); PROTHROMBIN TIME 15.2 Seconds (9.6-11.5)
[2020-04-05 03:56] LABS: ALANINE AMINOTRANSFERASE 85 U/L (12-78); ALBUMIN 2.7 g/dL (3.4-5.0); ANION GAP 11 mmol/L (5-15); CALCIUM 6.8 mg/dL (8.5-10.1); CHLORIDE 101 mmol/L (98-107); CREATININE 2.25 mg/dL (0.55-1.02)
[2020-04-05] MEDS: NOREPINEPHRINE 8 MG in SODIUM CHLORIDE 0.9% 242 ML IV PRN ×2 (04:05→09:13)
[2020-04-05 04:06] LABS: ALKALINE PHOSPHATASE 339 U/L (45-117); TOTAL PROTEIN 4.6 g/dL (6.4-8.2)
[2020-04-05] MEDS: ONDANSETRON 2MG/ML, 2ML IVPush PRN (05:04)
[2020-04-05] MEDS: AMPICILLIN/SULBACTAM 3 GM in SODIUM CHLORIDE 0.9% 100 ML IV SCH (05:27)
[2020-04-05 06:20] LABS: MEAN CORPUSCULAR HEMOGLOBIN 31.1 pg (27.0-34.8); MEAN CORPUSCULAR HGB CONC 33.7 g/dL (32.4-35.8); MEAN CORPUSCULAR VOLUME 92.1 fL (80-100); MEAN PLATELET VOLUME 6.9 fL (7.4-10.4); PLATELET COUNT 235 x10^3/uL (130-400); RED BLOOD COUNT 2.52 x10^6/uL (3.82-5.3); RED CELL DISTRIBUTION WIDTH 19.9 % (9.6-15.2)
[2020-04-05] MEDS: PANTOPRAZOLE 40MG TABLET PO SCH ×2 (06:26→14:39)
[2020-04-05 06:46] LABS: MD YES
[2020-04-05 06:47] LABS: ANISOCYTOSIS 1+; LYMPH#(MANUAL) 0.47 x10^3/uL (1-3.4); LYMPHS% (MANUAL) 6 % (22-44); MONOS#(MANUAL) 0.47 x10^3/uL (0.3-2.7); MONOS% (MANUAL) 6 % (2-9); MYELOCYTES# (MANUAL) 0.08 x10^3/uL (0-0); MYELOCYTES% (MANUAL) 1 % (0-0); POLYCHROMASIA 1+; SEG#(MANUAL) 6.87 x10^3/uL (1.8-6.8); SEGS% (MANUAL) 87 % (42-75)
[2020-04-05 06:48] LABS: ACANTHOCYTES 1+; ECHINOCYTES 1+; OVALOCYTES 1+
[2020-04-05 08:00] LABS: <PLATELET ESTIMATE> ADEQUATE; <PLT MORPHOLOGY> NORMAL PLT MORPH
[2020-04-05] MEDS: MIDODRINE 5 MG TABLET PO SCH ×3 (08:26→21:53)
[2020-04-05] MEDS: SODIUM BICARBONATE 650 MG TABLET PO SCH ×4 (08:26→21:53)
[2020-04-05] MEDS: LEVETIRACETAM 500 MG TABLET PO SCH ×2 (08:27→21:59)
[2020-04-05] MEDS: CALCIUM/VITAMIN D3 250-125 TABLET PO SCH ×2 (08:27→21:53)
[2020-04-05] MEDS: SENNA/DOCUSATE TABLET PO SCH (08:27)
[2020-04-05] MEDS: LACTOBACILLUS CHEW TABLET PO SCH ×3 (08:27→21:53)
[2020-04-05] MEDS: SODIUM CHLORIDE FLUSH 10ML SYR IVF SCH ×2 (08:27→21:54)
[2020-04-05] MEDS: ALBUMIN HUMAN 25% 100 ML IV SCH ×2 (08:28→17:11)
[2020-04-05] MEDS: AMPICILLIN 1 GM in SODIUM CHLORIDE 0.9% 100 ML IV SCH ×2 (11:04→16:04)
[2020-04-05] MEDS: LACTATED RINGERS 1,000 ML IV SCH (11:04)
[2020-04-05] MEDS: ERGOCALCIFEROL 50,000 UNIT CAPSULE PO SCH (14:36)
[2020-04-05] MEDS: FERROUS SULFATE 325 MG TABLET PO SCH (21:59)
[2020-04-06] MEDS: AMPICILLIN 1 GM in SODIUM CHLORIDE 0.9% 100 ML IV SCH ×4 (00:15→17:46)
[2020-04-06] MEDS: NOREPINEPHRINE 8 MG in SODIUM CHLORIDE 0.9% 242 ML IV PRN ×2 (00:15→08:54)
[2020-04-06] MEDS: LACTATED RINGERS 1,000 ML IV SCH ×2 (00:17→16:03)
[2020-04-06] MEDS: HEPARIN 5,000 UNITS/ML, 1ML SQ SCH ×3 (00:26→16:04)
[2020-04-06 05:08] LABS: MEAN CORPUSCULAR HEMOGLOBIN 31.3 pg (27.0-34.8); MEAN CORPUSCULAR HGB CONC 34.1 g/dL (32.4-35.8); MEAN CORPUSCULAR VOLUME 91.8 fL (80-100); MEAN PLATELET VOLUME 7.1 fL (7.4-10.4); PLATELET COUNT 237 x10^3/uL (130-400); RED BLOOD COUNT 2.34 x10^6/uL (3.82-5.3); RED CELL DISTRIBUTION WIDTH 20.3 % (9.6-15.2)
[2020-04-06 05:16] LABS: ALBUMIN 2.9 g/dL (3.4-5.0); ANION GAP 9 mmol/L (5-15); CALCIUM 7.5 mg/dL (8.5-10.1); CHLORIDE 101 mmol/L (98-107); CREATININE 2.66 mg/dL (0.55-1.02)
[2020-04-06 05:21] LABS: % IRON SATURATION 30 % (20-55); IRON LEVEL 37 mcg/dL (50-170); TOTAL IRON BINDING CAPACITY 124 mcg/dL (250-450)
[2020-04-06] MEDS: PANTOPRAZOLE 40MG TABLET PO SCH ×2 (06:04→16:04)
[2020-04-06 06:07] LABS: MD YES
[2020-04-06 06:08] LABS: BAND#(MANUAL) 0.26 x10^3/uL; BANDS%(MANUAL) 3 % (0-7); LYMPHS% (MANUAL) 14 % (22-44); MONOS#(MANUAL) 0.34 x10^3/uL (0.3-2.7); MONOS% (MANUAL) 4 % (2-9)
[2020-04-06 06:09] LABS: ACANTHOCYTES 1+; ANISOCYTOSIS 1+; OVALOCYTES 1+; POLYCHROMASIA 1+
[2020-04-06 06:10] LABS: <PLATELET ESTIMATE> ADEQUATE; <PLT MORPHOLOGY> NORMAL PLT MORPH; MYELOCYTES# (MANUAL) 0.09 x10^3/uL (0-0); MYELOCYTES% (MANUAL) 1 % (0-0); SEG#(MANUAL) 6.71 x10^3/uL (1.8-6.8); SEGS% (MANUAL) 78 % (42-75)
[2020-04-06] MEDS: MIDODRINE 5 MG TABLET PO SCH ×3 (08:54→21:00)
[2020-04-06] MEDS: SODIUM BICARBONATE 650 MG TABLET PO SCH ×3 (08:54→21:00)
[2020-04-06] MEDS: CALCIUM/VITAMIN D3 250-125 TABLET PO SCH ×3 (08:54→21:00)
[2020-04-06] MEDS: SENNA/DOCUSATE TABLET PO SCH (08:54)
[2020-04-06] MEDS: LEVETIRACETAM 500 MG TABLET PO SCH ×2 (08:54→20:59)
[2020-04-06] MEDS: LACTOBACILLUS CHEW TABLET PO SCH ×3 (08:54→20:59)
[2020-04-06] MEDS: SODIUM CHLORIDE FLUSH 10ML SYR IVF SCH ×2 (08:55→20:59)
[2020-04-06] MEDS: LACTULOSE 20 GM/30 ML UDC PO SCH ×3 (11:30→21:00)
[2020-04-06] MEDS: FUROSEMIDE 40 MG/4 ML IV SCH ×2 (11:31→20:59)
[2020-04-06] MEDS ORDERED: NOREPINEPHRINE 32 MG in SODIUM CHLORIDE 0.9% 218 ML IV PRN (14:00)
[2020-04-07] VITALS (7 sets, daily range): BP systolic 79–90; BP diastolic 42–51
[2020-04-07] MEDS: AMPICILLIN 1 GM in SODIUM CHLORIDE 0.9% 100 ML IV SCH ×4 (00:35→18:35)
[2020-04-07] MEDS: HEPARIN 5,000 UNITS/ML, 1ML SQ SCH ×3 (00:35→17:12)
[2020-04-07 05:17] LABS: ALBUMIN 2.6 g/dL (3.4-5.0); ANION GAP 10 mmol/L (5-15); CALCIUM 8.3 mg/dL (8.5-10.1); CHLORIDE 101 mmol/L (98-107)
[2020-04-07 05:18] LABS: MEAN CORPUSCULAR HGB CONC 33.4 g/dL (32.4-35.8); MEAN CORPUSCULAR VOLUME 92.9 fL (80-100); MEAN PLATELET VOLUME 6.5 fL (7.4-10.4); PLATELET COUNT 183 x10^3/uL (130-400); RED BLOOD COUNT 2.23 x10^6/uL (3.82-5.3); RED CELL DISTRIBUTION WIDTH 20.8 % (9.6-15.2)
[2020-04-07 05:20] LABS: ALANINE AMINOTRANSFERASE 75 U/L (12-78); ALKALINE PHOSPHATASE 318 U/L (45-117); BILIRUBIN,TOTAL 7.4 mg/dL (0.2-1.0); CREATININE 2.95 mg/dL (0.55-1.02); TOTAL PROTEIN 4.6 g/dL (6.4-8.2)
[2020-04-07 06:01] LABS: BASOPHILS # (AUTO) 0.01 x10^3/uL (0-0.1); BASOPHILS % (AUTO) 0 % (0-1); EOSINOPHILS # (AUTO) 0.09 x10^3/uL (0-0.4); EOSINOPHILS % (AUTO) 1 % (1-7); LYMPHOCYTES # (AUTO) 0.81 x10^3/uL (1-3.4); LYMPHOCYTES % (AUTO) 13 % (22-44); MD SCAN; MONOCYTES # (AUTO) 0.53 x10^3/uL (0.2-0.8); MONOCYTES % (AUTO) 8 % (2-9); NEUTROPHILS # (AUTO) 4.94 x10^3/uL (1.8-6.8); NEUTROPHILS % (AUTO) 77 % (42-75)
[2020-04-07] MEDS: PANTOPRAZOLE 40MG TABLET PO SCH ×2 (06:37→17:14)
[2020-04-07] MEDS: SENNA/DOCUSATE TABLET PO SCH (09:00)
[2020-04-07] MEDS: FUROSEMIDE 40 MG/4 ML IV SCH ×2 (10:22→22:14)
[2020-04-07] MEDS: CALCIUM/VITAMIN D3 250-125 TABLET PO SCH ×2 (10:22→20:18)
[2020-04-07] MEDS: IRON SUCROSE COMPLEX 100MG/5ML IV SCH (10:22)
[2020-04-07] MEDS: LACTOBACILLUS CHEW TABLET PO SCH ×3 (10:22→20:18)
[2020-04-07] MEDS: LACTULOSE 20 GM/30 ML UDC PO SCH ×2 (10:23→20:18)
[2020-04-07] MEDS: MIDODRINE 5 MG TABLET PO SCH ×3 (10:23→20:18)
[2020-04-07] MEDS: SODIUM CHLORIDE FLUSH 10ML SYR IVF SCH ×2 (10:23→20:17)
[2020-04-07] MEDS: LEVETIRACETAM 500 MG TABLET PO SCH ×2 (10:23→20:18)
[2020-04-07] MEDS: ONDANSETRON 2MG/ML, 2ML IVPush PRN (10:40)
[2020-04-07] MEDS: ALBUMIN HUMAN 25% 100 ML IV SCH ×3 (10:42→23:01)
[2020-04-07] MEDS ORDERED: AMPICILLIN 1 GM in SODIUM CHLORIDE 0.9% 50 ML IV SCH (18:59)
[2020-04-08] MEDS: AMPICILLIN 1 GM in SODIUM CHLORIDE 0.9% 50 ML IV SCH ×5 (00:49→23:32)
[2020-04-08] MEDS: HEPARIN 5,000 UNITS/ML, 1ML SQ SCH ×3 (01:03→21:09)
[2020-04-08 04:00] VITALS: BP 77/37
[2020-04-08 05:24] LABS: ALANINE AMINOTRANSFERASE 55 U/L (12-78); ALBUMIN 3.5 g/dL (3.4-5.0); ANION GAP 11 mmol/L (5-15); CALCIUM 8.6 mg/dL (8.5-10.1); CHLORIDE 101 mmol/L (98-107); CREATININE 3.38 mg/dL (0.55-1.02); MEAN CORPUSCULAR HEMOGLOBIN 31.7 pg (27.0-34.8); MEAN CORPUSCULAR HGB CONC 34.6 g/dL (32.4-35.8); MEAN CORPUSCULAR VOLUME 91.6 fL (80-100); MEAN PLATELET VOLUME 6.6 fL (7.4-10.4); PLATELET COUNT 125 x10^3/uL (130-400); RED BLOOD COUNT 2.32 x10^6/uL (3.82-5.3); RED CELL DISTRIBUTION WIDTH 19.8 % (9.6-15.2)
[2020-04-08 05:27] LABS: ALKALINE PHOSPHATASE 267 U/L (45-117); BILIRUBIN,TOTAL 9.4 mg/dL (0.2-1.0); TOTAL PROTEIN 5.2 g/dL (6.4-8.2)
[2020-04-08] MEDS: ALBUMIN HUMAN 25% 100 ML IV SCH (05:33)
[2020-04-08 06:09] LABS: BASOPHILS # (AUTO) 0.01 x10^3/uL (0-0.1); BASOPHILS % (AUTO) 0 % (0-1); EOSINOPHILS # (AUTO) 0.05 x10^3/uL (0-0.4); EOSINOPHILS % (AUTO) 1 % (1-7); LYMPHOCYTES # (AUTO) 0.96 x10^3/uL (1-3.4); LYMPHOCYTES % (AUTO) 16 % (22-44); MD SCAN; MONOCYTES # (AUTO) 0.44 x10^3/uL (0.2-0.8); MONOCYTES % (AUTO) 7 % (2-9); NEUTROPHILS # (AUTO) 4.64 x10^3/uL (1.8-6.8); NEUTROPHILS % (AUTO) 76 % (42-75)
[2020-04-08] MEDS: PANTOPRAZOLE 40MG TABLET PO SCH ×2 (06:50→17:42)
[2020-04-08] MEDS: FUROSEMIDE 40 MG/4 ML IV SCH (08:51)
[2020-04-08] MEDS: LACTULOSE 20 GM/30 ML UDC PO SCH ×2 (08:51→21:08)
[2020-04-08] MEDS: LACTOBACILLUS CHEW TABLET PO SCH ×3 (08:51→21:08)
[2020-04-08] MEDS: MIDODRINE 5 MG TABLET PO SCH ×3 (08:51→23:04)
[2020-04-08] MEDS: SODIUM CHLORIDE FLUSH 10ML SYR IVF SCH ×2 (08:52→21:08)
[2020-04-08] MEDS: LEVETIRACETAM 500 MG TABLET PO SCH ×2 (08:52→21:08)
[2020-04-08] MEDS: SENNA/DOCUSATE TABLET PO SCH (08:52)
[2020-04-08] MEDS: CALCIUM/VITAMIN D3 250-125 TABLET PO SCH ×2 (08:52→21:09)
[2020-04-08] MEDS: SPIRONOLACTONE 50 MG TABLET PO SCH ×2 (10:29→23:05)
[2020-04-08] MEDS: IRON SUCROSE COMPLEX 100MG/5ML IV SCH (10:30)
[2020-04-08] MEDS: FUROSEMIDE 40 MG TABLET PO SCH (17:25)
[2020-04-09 04:00] VITALS: BP 88/50
[2020-04-09 05:13] LABS: BASOPHILS % (AUTO) 0 % (0-1); EOSINOPHILS % (AUTO) 3 % (1-7); LYMPHOCYTES % (AUTO) 13 % (22-44); MD NO; MEAN PLATELET VOLUME 7.5 fL (7.4-10.4); MONOCYTES # (AUTO) 0.45 x10^3/uL (0.2-0.8); MONOCYTES % (AUTO) 7 % (2-9); NEUTROPHILS # (AUTO) 4.96 x10^3/uL (1.8-6.8); NEUTROPHILS % (AUTO) 77 % (42-75); PLATELET COUNT 127 x10^3/uL (130-400); RED BLOOD COUNT 2.55 x10^6/uL (3.82-5.3); RED CELL DISTRIBUTION WIDTH 20.4 % (9.6-15.2)
[2020-04-09 05:15] LABS: CHLORIDE 100 mmol/L (98-107)
[2020-04-09] MEDS: AMPICILLIN 1 GM in SODIUM CHLORIDE 0.9% 50 ML IV SCH ×4 (05:23→23:47)
[2020-04-09] MEDS: PANTOPRAZOLE 40MG TABLET PO SCH ×2 (05:23→16:19)
[2020-04-09 05:24] LABS: ALANINE AMINOTRANSFERASE 51 U/L (12-78); ALBUMIN 3.4 g/dL (3.4-5.0); ALKALINE PHOSPHATASE 260 U/L (45-117); ANION GAP 13 mmol/L (5-15); BILIRUBIN,TOTAL 10.4 mg/dL (0.2-1.0); CALCIUM 8.8 mg/dL (8.5-10.1); TOTAL PROTEIN 5.2 g/dL (6.4-8.2)
[2020-04-09] MEDS: FUROSEMIDE 40 MG TABLET PO SCH ×2 (09:03→17:23)
[2020-04-09] MEDS: SPIRONOLACTONE 50 MG TABLET PO SCH ×2 (09:04→20:23)
[2020-04-09] MEDS: LEVETIRACETAM 500 MG TABLET PO SCH ×2 (09:05→20:24)
[2020-04-09] MEDS: LACTOBACILLUS CHEW TABLET PO SCH ×3 (09:06→20:23)
[2020-04-09] MEDS: MIDODRINE 5 MG TABLET PO SCH ×3 (09:06→20:24)
[2020-04-09] MEDS: CALCIUM/VITAMIN D3 250-125 TABLET PO SCH ×2 (09:08→20:23)
[2020-04-09] MEDS: SENNA/DOCUSATE TABLET PO SCH (09:09)
[2020-04-09] MEDS: LACTULOSE 20 GM/30 ML UDC PO SCH ×2 (09:11→20:23)
[2020-04-09] MEDS: SODIUM CHLORIDE FLUSH 10ML SYR IVF SCH ×2 (09:11→20:24)
[2020-04-09] MEDS: HEPARIN 5,000 UNITS/ML, 1ML SQ SCH ×2 (09:12→20:24)
[2020-04-09] MEDS: IRON SUCROSE COMPLEX 100MG/5ML IV SCH (11:16)
[2020-04-09 15:53] LABS: MICROSCOPIC INDICATED
[2020-04-10 04:00] VITALS: BP 83/52
[2020-04-10] MEDS: AMPICILLIN 1 GM in SODIUM CHLORIDE 0.9% 50 ML IV SCH ×4 (05:42→23:24)
[2020-04-10 05:47] LABS: BASOPHILS % (AUTO) 0 % (0-1); EOSINOPHILS # (AUTO) 0.13 x10^3/uL (0-0.4); EOSINOPHILS % (AUTO) 2 % (1-7); LYMPHOCYTES # (AUTO) 0.94 x10^3/uL (1-3.4); LYMPHOCYTES % (AUTO) 14 % (22-44); MD NO; MEAN CORPUSCULAR HEMOGLOBIN 31.1 pg (27.0-34.8); MEAN CORPUSCULAR HGB CONC 33.9 g/dL (32.4-35.8); MEAN CORPUSCULAR VOLUME 91.7 fL (80-100); MEAN PLATELET VOLUME 7.3 fL (7.4-10.4); MONOCYTES # (AUTO) 0.57 x10^3/uL (0.2-0.8); MONOCYTES % (AUTO) 8 % (2-9); NEUTROPHILS # (AUTO) 5.33 x10^3/uL (1.8-6.8); NEUTROPHILS % (AUTO) 76 % (42-75); PLATELET COUNT 141 x10^3/uL (130-400); RED BLOOD COUNT 2.67 x10^6/uL (3.82-5.3); RED CELL DISTRIBUTION WIDTH 20.1 % (9.6-15.2)
[2020-04-10 05:58] LABS: ALBUMIN 3.2 g/dL (3.4-5.0); ANION GAP 12 mmol/L (5-15); CHLORIDE 100 mmol/L (98-107)
[2020-04-10 06:01] LABS: ALANINE AMINOTRANSFERASE 49 U/L (12-78); ALKALINE PHOSPHATASE 249 U/L (45-117); TOTAL PROTEIN 5.1 g/dL (6.4-8.2)
[2020-04-10 06:22] LABS: CALCIUM 9.6 mg/dL (8.5-10.1)
[2020-04-10] MEDS: PANTOPRAZOLE 40MG TABLET PO SCH ×2 (06:29→16:54)
[2020-04-10] MEDS: LACTULOSE 20 GM/30 ML UDC PO SCH ×2 (08:39→21:43)
[2020-04-10] MEDS: LACTOBACILLUS CHEW TABLET PO SCH ×3 (08:41→21:45)
[2020-04-10] MEDS: MIDODRINE 5 MG TABLET PO SCH ×3 (08:41→21:43)
[2020-04-10] MEDS: SPIRONOLACTONE 50 MG TABLET PO SCH ×2 (08:41→21:42)
[2020-04-10] MEDS: FUROSEMIDE 40 MG TABLET PO SCH ×2 (08:41→16:47)
[2020-04-10] MEDS: LEVETIRACETAM 500 MG TABLET PO SCH ×2 (08:41→21:44)
[2020-04-10] MEDS: SODIUM CHLORIDE FLUSH 10ML SYR IVF SCH ×2 (08:42→21:44)
[2020-04-10] MEDS: CALCIUM/VITAMIN D3 250-125 TABLET PO SCH ×2 (08:47→21:43)
[2020-04-10] MEDS: SENNA/DOCUSATE TABLET PO SCH (08:48)
[2020-04-10] MEDS: HEPARIN 5,000 UNITS/ML, 1ML SQ SCH ×2 (09:02→21:43)
[2020-04-10] MEDS: SODIUM CHLORIDE 0.9% 1,000 ML IV SCH (10:30)
[2020-04-10] MEDS: IRON SUCROSE COMPLEX 100MG/5ML IV SCH (14:24)
[2020-04-11] MEDS: SODIUM CHLORIDE 0.9% 1,000 ML IV SCH ×2 (02:06→10:30)
[2020-04-11 04:00] VITALS: BP 94/55
[2020-04-11 05:25] LABS: ALBUMIN 3.1 g/dL (3.4-5.0); ANION GAP 14 mmol/L (5-15); CALCIUM 9.2 mg/dL (8.5-10.1); CHLORIDE 102 mmol/L (98-107)
[2020-04-11 05:29] LABS: ALANINE AMINOTRANSFERASE 49 U/L (12-78); ALKALINE PHOSPHATASE 234 U/L (45-117); BILIRUBIN,TOTAL 9.2 mg/dL (0.2-1.0); CREATININE 4.07 mg/dL (0.55-1.02); TOTAL PROTEIN 4.9 g/dL (6.4-8.2)
[2020-04-11 05:38] LABS: BASOPHILS # (AUTO) 0.02 x10^3/uL (0-0.1); BASOPHILS % (AUTO) 0 % (0-1); EOSINOPHILS # (AUTO) 0.06 x10^3/uL (0-0.4); EOSINOPHILS % (AUTO) 1 % (1-7); LYMPHOCYTES # (AUTO) 1.31 x10^3/uL (1-3.4); LYMPHOCYTES % (AUTO) 16 % (22-44); MD NO; MEAN CORPUSCULAR HGB CONC 33.3 g/dL (32.4-35.8); MEAN CORPUSCULAR VOLUME 93.1 fL (80-100); MEAN PLATELET VOLUME 6.6 fL (7.4-10.4); MONOCYTES # (AUTO) 0.55 x10^3/uL (0.2-0.8); MONOCYTES % (AUTO) 7 % (2-9); NEUTROPHILS # (AUTO) 6.11 x10^3/uL (1.8-6.8); NEUTROPHILS % (AUTO) 76 % (42-75); PLATELET COUNT 134 x10^3/uL (130-400); RED BLOOD COUNT 2.66 x10^6/uL (3.82-5.3); RED CELL DISTRIBUTION WIDTH 20.1 % (9.6-15.2)
[2020-04-11] MEDS: AMPICILLIN 1 GM in SODIUM CHLORIDE 0.9% 50 ML IV SCH ×4 (06:05→23:41)
[2020-04-11 08:00] VITALS: BP 93/61
[2020-04-11] MEDS: FUROSEMIDE 40 MG TABLET PO SCH ×3 (08:00→16:54)
[2020-04-11] MEDS: CALCIUM/VITAMIN D3 250-125 TABLET PO SCH ×2 (08:39→21:16)
[2020-04-11] MEDS: LACTOBACILLUS CHEW TABLET PO SCH ×3 (08:39→21:16)
[2020-04-11] MEDS: HEPARIN 5,000 UNITS/ML, 1ML SQ SCH ×2 (08:39→21:16)
[2020-04-11] MEDS: LACTULOSE 20 GM/30 ML UDC PO SCH ×2 (08:39→21:16)
[2020-04-11] MEDS: MIDODRINE 5 MG TABLET PO SCH ×3 (08:40→21:16)
[2020-04-11] MEDS: LEVETIRACETAM 500 MG TABLET PO SCH ×2 (08:40→21:16)
[2020-04-11] MEDS: SODIUM CHLORIDE FLUSH 10ML SYR IVF SCH ×2 (08:40→21:17)
[2020-04-11] MEDS: SENNA/DOCUSATE TABLET PO SCH (08:40)
[2020-04-11] MEDS: PANTOPRAZOLE 40MG TABLET PO SCH ×2 (08:41→16:54)
[2020-04-11] MEDS: SPIRONOLACTONE 50 MG TABLET PO SCH ×3 (08:42→21:00)
[2020-04-11] MEDS: IRON SUCROSE COMPLEX 100MG/5ML IV SCH (11:04)
[2020-04-11 14:28] VITALS: BP 76/45
[2020-04-11 16:16] LABS: MICROSCOPIC INDICATED
[2020-04-11 16:19] LABS: CHLORIDE,URINE RANDOM 35 mmol/L; POTASSIUM,URINE RANDOM 27 mmol/L; SODIUM,URINE RANDOM 14 mmol/L
[2020-04-11 20:16] VITALS: BP 95/62
[2020-04-12 02:07] VITALS: BP 95/61
[2020-04-12] MEDS: PANTOPRAZOLE 40MG TABLET PO SCH ×2 (05:29→16:06)
[2020-04-12] MEDS: AMPICILLIN 1 GM in SODIUM CHLORIDE 0.9% 50 ML IV SCH ×4 (05:29→23:37)
[2020-04-12] MEDS: SODIUM CHLORIDE 0.9% 1,000 ML IV SCH (05:32)
[2020-04-12 07:21] VITALS: BP 92/54
[2020-04-12] MEDS: FUROSEMIDE 40 MG TABLET PO SCH ×2 (08:00→15:56)
[2020-04-12] MEDS: SPIRONOLACTONE 50 MG TABLET PO SCH ×2 (08:45→21:20)
[2020-04-12] MEDS: LACTULOSE 20 GM/30 ML UDC PO SCH ×2 (08:49→21:19)
[2020-04-12] MEDS: SENNA/DOCUSATE TABLET PO SCH (08:49)
[2020-04-12] MEDS: LACTOBACILLUS CHEW TABLET PO SCH ×3 (08:50→21:19)
[2020-04-12] MEDS: CALCIUM/VITAMIN D3 250-125 TABLET PO SCH ×2 (08:50→21:20)
[2020-04-12] MEDS: LEVETIRACETAM 500 MG TABLET PO SCH ×2 (08:50→21:20)
[2020-04-12] MEDS: HEPARIN 5,000 UNITS/ML, 1ML SQ SCH ×2 (08:50→21:20)
[2020-04-12] MEDS: SODIUM CHLORIDE FLUSH 10ML SYR IVF SCH ×2 (08:50→21:19)
[2020-04-12] MEDS: MIDODRINE 5 MG TABLET PO SCH ×3 (08:50→21:20)
[2020-04-12 13:10] VITALS: BP 91/53
[2020-04-12] MEDS: ERGOCALCIFEROL 50,000 UNIT CAPSULE PO SCH (16:06)
[2020-04-12 18:58] VITALS: BP 95/60
[2020-04-13 02:20] VITALS: BP 96/66
[2020-04-13] MEDS: SODIUM CHLORIDE 0.9% 1,000 ML IV SCH ×2 (02:43→23:31)
[2020-04-13] MEDS: AMPICILLIN 1 GM in SODIUM CHLORIDE 0.9% 50 ML IV SCH ×4 (05:55→23:22)
[2020-04-13] MEDS: PANTOPRAZOLE 40MG TABLET PO SCH ×2 (06:39→16:44)
[2020-04-13 07:46] VITALS: BP 93/58
[2020-04-13] MEDS: LACTOBACILLUS CHEW TABLET PO SCH ×3 (08:30→21:00)
[2020-04-13] MEDS: CALCIUM/VITAMIN D3 250-125 TABLET PO SCH ×2 (08:30→21:00)
[2020-04-13] MEDS: SENNA/DOCUSATE TABLET PO SCH (08:30)
[2020-04-13] MEDS: FUROSEMIDE 40 MG TABLET PO SCH ×2 (08:30→16:45)
[2020-04-13] MEDS: LACTULOSE 20 GM/30 ML UDC PO SCH ×2 (08:30→21:00)
[2020-04-13] MEDS: MIDODRINE 5 MG TABLET PO SCH ×3 (08:30→21:00)
[2020-04-13] MEDS: LEVETIRACETAM 500 MG TABLET PO SCH ×2 (08:30→21:00)
[2020-04-13] MEDS: SPIRONOLACTONE 50 MG TABLET PO SCH ×2 (08:30→21:00)
[2020-04-13] MEDS: HEPARIN 5,000 UNITS/ML, 1ML SQ SCH ×2 (08:30→21:00)
[2020-04-13 12:47] VITALS: BP 95/3
[2020-04-13] MEDS: SODIUM CHLORIDE FLUSH 10ML SYR IVF SCH ×2 (12:52→21:15)
[2020-04-13 19:12] VITALS: BP 99/65
[2020-04-13] MEDS ORDERED: LORazepam 2 MG/ML, 1ML IVPush ONE (23:30)
[2020-04-14 01:39] VITALS: BP 114/70
[2020-04-14] MEDS: AMPICILLIN 1 GM in SODIUM CHLORIDE 0.9% 50 ML IV SCH ×2 (05:57→11:58)
[2020-04-14] MEDS: PANTOPRAZOLE 40MG TABLET PO SCH (05:57)
[2020-04-14 07:15] VITALS: BP 98/64
[2020-04-14] MEDS: SODIUM CHLORIDE FLUSH 10ML SYR IVF SCH (07:41)
[2020-04-14] MEDS: FUROSEMIDE 40 MG TABLET PO SCH (07:41)
[2020-04-14] MEDS: SENNA/DOCUSATE TABLET PO SCH (07:42)
[2020-04-14] MEDS: SPIRONOLACTONE 50 MG TABLET PO SCH (07:42)
[2020-04-14] MEDS: LACTULOSE 20 GM/30 ML UDC PO SCH (07:42)
[2020-04-14] MEDS: HEPARIN 5,000 UNITS/ML, 1ML SQ SCH (07:42)
[2020-04-14] MEDS: MIDODRINE 5 MG TABLET PO SCH (07:43)
[2020-04-14] MEDS: CALCIUM/VITAMIN D3 250-125 TABLET PO SCH (07:43)
[2020-04-14] MEDS: LACTOBACILLUS CHEW TABLET PO SCH (07:43)
[2020-04-14] MEDS: LEVETIRACETAM 500 MG TABLET PO SCH (07:43)
[2020-04-14] MEDS ORDERED: OXYcodone IR 5MG TABLET PO PRN (11:00)
[2020-04-14] MEDS ORDERED: DIPHENHYDRAMINE 50 MG/ML, 1ML IVPush PRN (11:00)
[2020-04-14 13:04] VITALS: BP 94/59
[2020-04-14] MEDS ORDERED: LACT20SO13 PO (13:45)
[2020-04-14] MEDS ORDERED: MIDO5TAB9 PO (13:45)
== END 2020-04-14 14:05 | disposition hospice, home (50) | DRG 469 ==
LOC: ED 16:48 → EDIP 18:55 → 4WST 21:29 → CCU 04-05 03:57 → 4NW 04-11 13:54
PROVIDERS: ADMIT Family Medicine; ATTEND Hospitalist
PROC: 02HV33Z Insertion of Infusion Device into Superior Vena Cava, Percutaneous Approach (ICD-10-PCS; 2020-04-06)
PROC: B548ZZA Ultrasonography of Superior Vena Cava, Guidance (ICD-10-PCS; 2020-04-06)
PROC: 30233N1 Transfusion of Nonautologous Red Blood Cells into Peripheral Vein, Percutaneous Approach (ICD-10-PCS; principal; 2020-04-07)
DX: N17.0 Acute kidney failure with tubular necrosis (principal); G93.41 Metabolic encephalopathy; K72.00 Acute and subacute hepatic failure without coma; K75.4 Autoimmune hepatitis; K76.7 Hepatorenal syndrome; B95.2 Enterococcus as the cause of diseases classified elsewhere; D64.9 Anemia, unspecified; E22.2 Syndrome of inappropriate secretion of antidiuretic hormone; E43 Unspecified severe protein-calorie malnutrition; E83.51 Hypocalcemia; E86.1 Hypovolemia; E87.2 Acidosis; E87.5 Hyperkalemia; E87.6 Hypokalemia; E87.70 Fluid overload, unspecified; I08.1 Rheumatic disorders of both mitral and tricuspid valves; I10 Essential (primary) hypertension; J90 Pleural effusion, not elsewhere classified; K72.10 Chronic hepatic failure without coma; K74.60 Unspecified cirrhosis of liver; N39.0 Urinary tract infection, site not specified; K26.4 Chronic or unspecified duodenal ulcer with hemorrhage; Z51.5 Encounter for palliative care; Z66 Do not resuscitate; Z74.01 Bed confinement status; Z91.19 Patient's noncompliance with other medical treatment and regimen; Z79.899 Other long term (current) drug therapy; Z83.49 Family history of other endocrine, nutritional and metabolic diseases
CPT/HCPCS: 36415; 36573; 70450; 71045; 76705; 76770; 80048; 80053; 80069; 81001; 82140; 82274; 82306; 82330; 82436; 82533; 82570; 82728; 82962; 83540; 83550; 83605; 83690; 83735; 83930; 83935; 83970; 84100; 84132; 84133; 84145; 84295; 84300; 84443; 84550; 85014; 85018; 85025; 85610; 86140; 86850; 86870; 86900; 86902; 86922; 86923; 87040; 87077; 87081; 87086; 87186; 93005; 93306; 96361; 96374; 96375; G0378; J0290; J0295; J0696; J1644; J1756; J1815; J1940; J2405; J7070; P9045; P9047; Q0162; C1751; J1200; J2060; J7030; J7040; J7050; J7120; P9016

== ENCOUNTER 2020-04-16 13:16 | Inpatient (IN) | payer MEDICAID ==
[~2020-04-16] VITALS: Ht 170.2 cm; Wt 70.3 kg
[~2020-04-16 13:16] MED LIST changes: +LACT20SO13 PO; +MIDO5TAB9 PO
--- NOTE | 2020-04-16 13:29 | NUR ---
PT BIB EMS FOR INCREASED DETORIATION IN STATUS AND FAILURE TO THRIVE. PT END STAGE LIVER DISEASE. PT NOT ALERT, NODS YES OR NO QUESTIONS, HYPOTENSIVE 70/40, GEOPHYSICAL DRAFTER APPLIED. CRUMP OUTPUT DARK IN COLOR. JAUNDICE SKIN COLOR. 4L O2 APPLIED, 96%. 88% RA. DENIES PAIN, CP, SOB OR COUGH.
[2020-04-16] MEDS ORDERED: SODIUM CHLORIDE 0.9% 1,000ML IVBOLUS ONE (14:00)
[2020-04-16] MEDS ORDERED: SODIUM CHLORIDE FLUSH 10ML SYR IVF ONE (14:00)
[2020-04-16 14:03] LABS: ALANINE AMINOTRANSFERASE 44 U/L (12-78); ALBUMIN 2.6 g/dL (3.4-5.0); ANION GAP 18 mmol/L (5-15); CALCIUM 8.8 mg/dL (8.5-10.1); CHLORIDE 107 mmol/L (98-107); CREATININE 5.47 mg/dL (0.55-1.02)
[2020-04-16 14:06] LABS: ALKALINE PHOSPHATASE 217 U/L (45-117); BILIRUBIN,TOTAL 9.2 mg/dL (0.2-1.0); TOTAL PROTEIN 5.1 g/dL (6.4-8.2)
--- NOTE | 2020-04-16 14:15 | NUR ---
GLUCOSE 42
[2020-04-16 14:16] LABS: MEAN CORPUSCULAR HEMOGLOBIN 31.5 pg (27.0-34.8); MEAN CORPUSCULAR HGB CONC 33.2 g/dL (32.4-35.8); MEAN CORPUSCULAR VOLUME 94.6 fL (80-100); RED BLOOD COUNT 2.71 x10^6/uL (3.82-5.3); RED CELL DISTRIBUTION WIDTH 26.1 % (9.6-15.2)
[2020-04-16] MEDS ORDERED: DEXTROSE 50%, 50ML SYRINGE ONE (14:21)
[2020-04-16] MEDS ORDERED: DEXTROSE 50%, 50ML SYRINGE IVPush ONE (14:30)
[2020-04-16 14:32] LABS: MD YES
--- NOTE | 2020-04-16 14:43 | NUR ---
PT GIVEN D5 IVP. GLUCOSE NOW 134
[2020-04-16 14:46] LABS: MEAN PLATELET VOLUME 6.9 fL (7.4-10.4); PLATELET COUNT 90 x10^3/uL (130-400)
[2020-04-16 14:51] LABS: ANISOCYTOSIS 1+; BANDS%(MANUAL) 1 % (0-7); LYMPH#(MANUAL) 0.51 x10^3/uL (1-3.4); LYMPHS% (MANUAL) 5 % (22-44); MONOS% (MANUAL) 1 % (2-9); SEG#(MANUAL) 9.39 x10^3/uL (1.8-6.8); SEGS% (MANUAL) 93 % (42-75)
[2020-04-16 14:52] LABS: MICROCYTOSIS 1+; OVALOCYTES 1+
[2020-04-16 14:53] LABS: ECHINOCYTES 1+; SCHISTOCYTES 1+
[2020-04-16 14:55] LABS: TARGET CELLS 1+
[2020-04-16 14:57] LABS: <PLATELET ESTIMATE> DECREASED; PMNS WITH VACUOLES 1+
[2020-04-16 14:58] LABS: <PLT MORPHOLOGY> NORMAL PLT MORPH; ACANTHOCYTES 1+
[2020-04-16] MEDS ORDERED: DEXTROSE 50%, 50ML VIAL IVPush ONE (15:00)
[2020-04-16] MEDS ORDERED: D5%-0.9% NACL 1,000 ML IV SCH (15:00)
--- NOTE | 2020-04-16 15:10 | NUR ---
D5/NS INFUSING. UA SENT.
[2020-04-16 15:26] LABS: MICROSCOPIC INDICATED
[2020-04-16 15:38] LABS: ACETONE, SERUM Small (20mg/dL) (Negative)
[2020-04-16] MEDS ORDERED: morphine SULFATE 10 MG/ML, 1ML IVPush PRN (16:00)
[2020-04-16] MEDS ORDERED: PROMETHAZINE 25 MG/ML, 1ML IM PRN (16:00)
[2020-04-16] MEDS: LACTULOSE 10 GM/15 ML UDC PO SCH ×2 (16:00→20:15)
[2020-04-16] MEDS ORDERED: ONDANSETRON ODT 4 MG PO PRN (16:00)
[2020-04-16] MEDS ORDERED: OXYcodone IR 5MG TABLET PO PRN (16:00)
[2020-04-16] MEDS ORDERED: ONDANSETRON 2MG/ML, 2ML IVPush PRN (16:00)
[2020-04-16 16:23] VITALS: BP 93/61
[2020-04-16] MEDS: MIDODRINE 5 MG TABLET PO SCH ×2 (16:30→20:15)
[2020-04-16] MEDS: D5%-0.45% NACL 1,000 ML IV SCH (17:23)
[2020-04-16 20:42] VITALS: BP 110/65
[2020-04-17 02:23] VITALS: BP 90/56
[2020-04-17] MEDS: D5%-0.45% NACL 1,000 ML IV SCH (02:50)
[2020-04-17 07:33] VITALS: BP 77/55
[2020-04-17] MEDS: LACTULOSE 10 GM/15 ML UDC PO SCH ×2 (08:20→14:34)
[2020-04-17] MEDS ORDERED: SODIUM CHLORIDE 0.9% 1,000ML IVBOLUS ONE (09:00)
[2020-04-17 09:19] LABS: ANION GAP 17 mmol/L (5-15); CALCIUM 8.6 mg/dL (8.5-10.1); CHLORIDE 108 mmol/L (98-107); CREATININE 5.59 mg/dL (0.55-1.02)
[2020-04-17] MEDS: MIDODRINE 5 MG TABLET PO SCH ×2 (09:33→14:35)
[2020-04-17 11:00] LABS: MEAN CORPUSCULAR HEMOGLOBIN 32.1 pg (27.0-34.8); MEAN CORPUSCULAR HGB CONC 33.2 g/dL (32.4-35.8); MEAN CORPUSCULAR VOLUME 96.7 fL (80-100); MEAN PLATELET VOLUME 7.3 fL (7.4-10.4); PLATELET COUNT 57 x10^3/uL (130-400); RED BLOOD COUNT 2.72 x10^6/uL (3.82-5.3); RED CELL DISTRIBUTION WIDTH 27.5 % (9.6-15.2)
[2020-04-17 11:01] LABS: BASOPHILS # (AUTO) 0.07 x10^3/uL (0-0.1); BASOPHILS % (AUTO) 1 % (0-1); EOSINOPHILS # (AUTO) 0.07 x10^3/uL (0-0.4); EOSINOPHILS % (AUTO) 1 % (1-7); LYMPHOCYTES # (AUTO) 1.62 x10^3/uL (1-3.4); LYMPHOCYTES % (AUTO) 15 % (22-44); MD MORPH REVIEW ONLY; MONOCYTES # (AUTO) 0.24 x10^3/uL (0.2-0.8); MONOCYTES % (AUTO) 2 % (2-9); NEUTROPHILS # (AUTO) 8.55 x10^3/uL (1.8-6.8); NEUTROPHILS % (AUTO) 81 % (42-75)
[2020-04-17 11:03] LABS: ACANTHOCYTES 1+; ANISOCYTOSIS 1+; ECHINOCYTES 1+; MICROCYTOSIS 1+; OVALOCYTES 1+; POLYCHROMASIA 1+; SCHISTOCYTES 1+
[2020-04-17 11:04] LABS: <PLATELET ESTIMATE> DECREASED; <PLT MORPHOLOGY> NORMAL PLT MORPH; TARGET CELLS 1+
[2020-04-17 12:21] VITALS: BP 101/52
[2020-04-17] MEDS ORDERED: LORazepam 2 MG/ML, 1ML IVPush PRN (16:00)
[2020-04-17] MEDS: MORPHINE 30MG/30ML PCA.SYR IV PRN (16:16)
[2020-04-17] MEDS ORDERED: SCOPOLAMINE 1MG PATCH TD PRN (21:00)
[2020-04-18] MEDS: ATROPINE OPHTH SOLN 1%, 5ML PO PRN ×4 (02:55→20:08)
[2020-04-18] MEDS: MORPHINE 30MG/30ML PCA.SYR IV PRN ×2 (06:43→21:25)
[2020-04-19] MEDS: ATROPINE OPHTH SOLN 1%, 5ML PO PRN ×3 (04:13→14:51)
[2020-04-19] MEDS: MORPHINE 30MG/30ML PCA.SYR IV PRN (11:35)
[2020-04-20] MEDS: MORPHINE 30MG/30ML PCA.SYR IV PRN (02:50)
[2020-04-20] MEDS: ATROPINE OPHTH SOLN 1%, 5ML PO PRN (05:34)
== END 2020-04-20 16:09 | disposition expired | DRG 469 ==
LOC: ED 14:45 → EDIP 15:56 → 3N 16:19 → 4NW 04-17 10:23
PROVIDERS: ADMIT Internal Medicine; ATTEND Internal Medicine
PROC: 0T9B70Z Drainage of Bladder with Drainage Device, Via Natural or Artificial Opening (ICD-10-PCS; principal; 2020-04-16)
DX: N17.0 Acute kidney failure with tubular necrosis (principal); E86.0 Dehydration; D69.6 Thrombocytopenia, unspecified; E16.2 Hypoglycemia, unspecified; E87.2 Acidosis; G93.41 Metabolic encephalopathy; J96.01 Acute respiratory failure with hypoxia; K72.00 Acute and subacute hepatic failure without coma; K72.10 Chronic hepatic failure without coma; K74.60 Unspecified cirrhosis of liver; K75.4 Autoimmune hepatitis; K75.81 Nonalcoholic steatohepatitis (NASH); N18.6 End stage renal disease; Z66 Do not resuscitate; R62.7 Adult failure to thrive; I12.0 Hypertensive chronic kidney disease with stage 5 chronic kidney disease or end stage renal disease; Z87.11 Personal history of peptic ulcer disease
CPT/HCPCS: 36415; 80048; 80053; 81001; 82010; 82140; 82962; 83735; 84100; 85025; 87086; 87106; 93005; G0378; J2270; J7042; J7030